=== PATIENT | female | born 1945 ===

== ENCOUNTER 2017-03-31 07:26 | Emergency (ER) | payer MEDICARE ==
[2017-03-31 07:31] VITALS: BMI 35.6
[2017-03-31 07:47] VITALS: RESP 18; O2SAT 98
[2017-03-31 09:05] LABS: BASO % 0.5 % (0.0-2.0); EOS # 0.1 K/uL (0.0-0.7); EOS % 1.2 % (0.0-4.0); HEMOGLOBIN 12.4 g/dL (12.0-16.0); LYMPH # 1.3 K/uL (1.0-4.3); MEAN CELL VOLUME 88.8 fl (81.0-99.0); MEAN CORPUSCULAR HEMOGLOBIN 29.5 pg (27.0-31.0); MEAN CORPUSCULAR HGB CONC 33.2 g/dL (33.0-37.0); MEAN PLATELET VOLUME 10.5 fl (7.2-11.7); MONO # 0.5 K/uL (0.0-0.8); MONO % 6.7 % (0.0-10.0); NEUT # 5.2 K/uL (1.8-7.0); NEUT % 73.6 % (50.0-75.0); NRBC % 0.1 % (0.0-0.0); RBC 4.2 Mil/uL (3.80-5.20); RED CELL DISTRIBUTION WIDTH 14.7 % (11.5-14.5)
--- NOTE | 2017-03-31 09:16 | ED PDOC ---
HPI: CCC, URI, Sore Throat Time Seen by Provider: 03/31/17 07:35 Chief Complaint (Nursing): ENT Problem Chief Complaint (Provider): ENT Problem History Per: Patient History/Exam Limitations: no limitations Onset/Duration Of Symptoms: Days (x 2 weeks) Current Symptoms Are (Timing): Still Present Additional Complaint(s): 71 y/o female with a past medical history of diabetes and asthma, who presents to the ED complaining of right-sided facial and throat pain, ongoing for 2 weeks. Denies recent dental work. Patient reports having strep throat infections in the past. PMD: Unknown Past Medical History Reviewed: Historical Data, Nursing Documentation, Vital Signs Vital Signs: Last Vital Signs Temp 98.7 F 03/31/17 12:52 Pulse 78 03/31/17 12:52 Resp 18 03/31/17 12:52 BP 128/78 03/31/17 12:52 Pulse Ox 98 03/31/17 12:52 - Medical History PMH: Asthma, Diabetes, HTN, Hyperlipidemia Denies: Hepatitis, HIV, Seizures, Sexually Transmitted Disease - Surgical History Surgical History: Appendectomy Other surgeries: Hysterectomy, L cataract surgery, breast reduction, thyroid surgery - Family History Family History: States: Unknown Family Hx - Social History Current smoker - smoking cessation education provided: No Alcohol: None Drugs: Denies - Immunization History Hx Tetanus Toxoid Vaccination: Yes Hx Influenza Vaccination: Yes Hx Pneumococcal Vaccination: Yes - Home Medications Home Medications: Ambulatory Orders Medication Instructions Recorded Lantus 30 units SC QN 10/29/15 Levothyroxine 75 mcg PO DAILY 10/29/15 Aspirin [Ecotrin] 81 mg PO DAILY 03/31/17 Atorvastatin Calcium 40 mg PO HS 03/31/17 Carvedilol [Coreg] 25 mg PO BID 03/31/17 Lisinopril/Hydrochlorothiazide 1 tab PO DAILY 03/31/17 [Lisinopril-Hctz 20-25 mg Tab] Pioglitazone [Actos] 30 mg PO DAILY 03/31/17 - Allergies Allergies/Adverse Reactions: Allergies Allergy/AdvReac Type Severity Reaction Status Date / Time No Known Allergies Allergy Verified 11/18/16 11:33 Review of Systems ROS Statement: Except As Marked, All Systems Reviewed And Found Negative ENT: Positive for: Throat Pain, Other (Right facial swelling) Cardiovascular: Negative for: Chest Pain Gastrointestinal: Negative for: Nausea, Vomiting, Abdominal Pain, Diarrhea Musculoskeletal: Positive for: Neck Pain Physical Exam - Reviewed Nursing Documentation Reviewed: Yes Vital Signs Reviewed: Yes - Physical Exam Appears: Positive for: Non-toxic, No Acute Distress, Uncomfortable Head Exam: Positive for: ATRAUMATIC, NORMAL INSPECTION, NORMOCEPHALIC Skin: Positive for: Normal Color, Warm, Dry Eye Exam: Positive for: EOMI, Normal appearance, PERRL ENT: Positive for: Pharyngeal Erythema. Negative for: Tonsillar Exudate Neck: Positive for: Normal, Painless ROM, Supple Cardiovascular/Chest: Positive for: Regular Rate, Rhythm. Negative for: Murmur Respiratory: Positive for: Normal Breath Sounds. Negative for: Accessory Muscle Use, Respiratory Distress Gastrointestinal/Abdominal: Positive for: Normal Exam, Soft. Negative for: Tenderness Back: Positive for: Normal Inspection. Negative for: Vertebral Tenderness Extremity: Positive for: Normal ROM. Negative for: Pedal Edema, Deformity Neurologic/Psych: Positive for: Alert, Oriented - Laboratory Results Result Diagrams: 03/31/17 08:56 03/31/17 08:56 - ECG O2 Sat by Pulse Oximetry: 98 (RA) Pulse Ox Interpretation: Normal Medical Decision Making Medical Decision Making: Time: 08:39 Initial Plan: neck pain, sore throat rule out infection/abscess --Labs --Acetaminophen 650 mg PO --Rapid strep test --Pending CT Neck Soft Tissue to rule out abscess Time: 12:00 CT Neck Soft Tissue: FINDINGS: NASOPHARYNX: Unremarkable. SUPRAHYOID NECK: Unremarkable oropharynx, oral cavity, parapharyngeal space and retropharyngeal space. INFRAHYOID NECK: Unremarkable larynx, hypopharynx, and supraglottic space. Vocal cords intact. MASS: None. GLANDS: Parotid and submandibular glands unremarkable. Normal size thyroid gland, without nodule. LYMPH NODES: Normal. No lymphadenopathy. CERVICAL SPINE: No fracture or focal lesion. VASCULAR STRUCTURES: Unremarkable. OTHER FINDINGS: No abscess or other suspicious fluid collection. IMPRESSION: Unremarkable contrast enhanced CT of the neck. Time: 12:20 --Patient aware of elevated blood sugar and reevaluated, states feels much better. sleeping comfortably in bed in NAD Clinical Impression: Facial pain Upon provider evaluation patient is medically stable, and requires no further treatment in the ED at this time. Patient will be discharged home. Counseling was provided and all questions were answered regarding diagnosis and need for follow up with PMD in 1-2 days. There is agreement to discharge plan. Return if symptoms persist or worsen. Scribe Attestation: Documented by Hazel Mathew, acting as a scribe for Chelsey Marti MD Provider Scribe Attestation: All medical record entries made by the Scribe were at my direction and personally dictated by me. I have reviewed the chart and agree that the record accurately reflects my personal performance of the history, physical exam, medical decision making, and the department course for this patient. I have also personally directed, reviewed, and agree with the discharge instructions and disposition. Disposition - Clinical Impression Clinical Impression: Facial pain - Patient ED Disposition Is Patient to be Admitted: No Doctor Will See Patient In The: Office Counseled Patient/Family Regarding: Studies Performed, Diagnosis, Need For Followup - Disposition Referrals: [facility] [Outside] [facility] [Outside] Disposition: Routine/Home Disposition Time: 10:00 Condition: IMPROVED Additional Instructions: follow up with your primary doctor in 1-2 days return to ED with any worsening or concerning symptoms. Instructions: Viral Syndrome (ED)
[2017-03-31 09:18] LABS: ALB/GLOB RATIO 1.2 (1.0-2.1); ALT/SGPT 33 U/L (9-52); AST/SGOT 21 U/L (14-36); BLOOD UREA NITROGEN 35 mg/dl (7-17); CALCIUM 9.5 mg/dL (8.4-10.2); GFR AFRICAN-AMERICAN > 60; GFR NON-AFRICAN AMERICAN > 60
[2017-03-31] MEDS ORDERED: Iohexol 300 100 ML IJ ONE (10:05)
[2017-03-31] MEDS ORDERED: Sodium Chloride 0.9% 50 ML IV ONE (10:06)
--- NOTE | 2017-03-31 12:02 | CT ---
PROCEDURE: CT NECK WITH CONTRAST HISTORY: neck pain COMPARISON: None TECHNIQUE: CT of the neck with intravenous contrast. Coronal and sagittal reformats generated. Intravenous contrast dose: Omnipaque Omnipaque 300-95 cc. Radiation dose: DLP 525 mGy-cm This CT exam was performed using one or more of the following dose reduction techniques: Automated exposure control, adjustment of the mA and/or kV according to patient size, and/or use of iterative reconstruction technique. FINDINGS: NASOPHARYNX: Unremarkable. SUPRAHYOID NECK: Unremarkable oropharynx, oral cavity, parapharyngeal space and retropharyngeal space. INFRAHYOID NECK: Unremarkable larynx, hypopharynx, and supraglottic space. Vocal cords intact. MASS: None. GLANDS: Parotid and submandibular glands unremarkable. Normal size thyroid gland, without nodule. LYMPH NODES: Normal. No lymphadenopathy. CERVICAL SPINE: No fracture or focal lesion. VASCULAR STRUCTURES: Unremarkable. OTHER FINDINGS: No abscess or other suspicious fluid collection. IMPRESSION: Unremarkable contrast enhanced CT of the neck.
[2017-03-31 12:54] VITALS: BP 128/78; PULSE 78; TEMP 98.7
== END 2017-03-31 13:32 | disposition home or self-care (01) ==
LOC: H.ER 07:26
DX: M54.2 Cervicalgia (principal); J02.9 Acute pharyngitis, unspecified; R51 Headache; E11.65 Type 2 diabetes mellitus with hyperglycemia; E78.5 Hyperlipidemia, unspecified; I10 Essential (primary) hypertension; J45.909 Unspecified asthma, uncomplicated
CPT/HCPCS: 70491; 80053; 85025; 87070; 87430; 96374; 99282; J2270; Q9967

== ENCOUNTER 2018-09-14 02:23 | Emergency (ER) | payer MEDICARE ==
[2018-09-14 02:23] VITALS: BMI 35.6
[2018-09-14] MEDS ORDERED: Albuterol-Ipratrop 3 mg / 0.5 (3 ml) UD INH STA ×2 (03:13→03:20)
[2018-09-14] MEDS ORDERED: Albuterol-Ipratrop 3 mg / 0.5 (3 ml) UD ONE (03:34)
[2018-09-14 03:56] LABS: BASO # 0.1 K/uL (0.0-0.2); EOS # 0.2 K/uL (0.0-0.7); EOS % 3.5 % (0.0-4.0); HEMOGLOBIN 11.9 g/dL (12.0-16.0); LYMPH # 0.8 K/uL (1.0-4.3); LYMPH % 15.1 % (20.0-40.0); MEAN CELL VOLUME 90.4 fl (81.0-99.0); MEAN CORPUSCULAR HEMOGLOBIN 29.2 pg (27.0-31.0); MEAN CORPUSCULAR HGB CONC 32.3 g/dL (33.0-37.0); MEAN PLATELET VOLUME 10.1 fl (7.2-11.7); MONO # 0.4 K/uL (0.0-0.8); MONO % 7.8 % (0.0-10.0); NEUT # 3.8 K/uL (1.8-7.0); NEUT % 72.6 % (50.0-75.0); NRBC % 0.1 % (0.0-0.0); RBC 4.06 Mil/uL (3.80-5.20); RED CELL DISTRIBUTION WIDTH 15.8 % (11.5-14.5); WHITE BLOOD COUNT 5.2 K/uL (4.8-10.8)
[2018-09-14 04:08] LABS: BLOOD UREA NITROGEN 20 mg/dl (7-17); CALCIUM 9.8 mg/dL (8.4-10.2); GFR NON-AFRICAN AMERICAN > 60
[2018-09-14 04:45] VITALS: BP 154/86; PULSE 70; RESP 18; TEMP 98.6; O2SAT 97
--- NOTE | 2018-09-14 06:23 | ED PDOC ---
HPI: Hypertension/Hypotension Time Seen by Provider: 09/14/18 02:56 Chief Complaint (Nursing): High Blood Pressure Chief Complaint (Provider): High Blood Pressure History Per: Patient History/Exam Limitations: no limitations Onset/Duration Of Symptoms: Days (x 1 week) Current Symptoms Are (Timing): Still Present Quality Of Symptoms: Asymptomatic Exacerbating Factor(s): Pos: None Additional Complaint(s): 73 year old female with a history of COPD and asthma presents to the ED with HTN and shortness of breath. Patient receive the flu shot one week ago and since then has had a productive cough. She was taking OTC medications that she attributes to the rise in her blood pressure. Patient is compliant with her medications and regularly follows up with her PMD. Denies chest pain and other symptoms. PMD: [employer] Past Medical History Reviewed: Historical Data, Nursing Documentation, Vital Signs Vital Signs: Last Vital Signs Temp 98.6 F 09/14/18 04:30 Pulse 70 09/14/18 04:30 Resp 18 09/14/18 04:30 BP 154/86 H 09/14/18 04:30 Pulse Ox 97 09/14/18 04:30 - Medical History PMH: Asthma, Diabetes, HTN, Hyperlipidemia Denies: Hepatitis, HIV, Seizures, Sexually Transmitted Disease - Surgical History Surgical History: Appendectomy - Family History Family History: States: Unknown Family Hx - Immunization History Hx Tetanus Toxoid Vaccination: Yes Hx Influenza Vaccination: Yes Hx Pneumococcal Vaccination: Yes - Home Medications Home Medications: Ambulatory Orders Medication Instructions Recorded Lantus 30 units SC QN 10/29/15 Levothyroxine 75 mcg PO DAILY 10/29/15 Aspirin [Ecotrin] 81 mg PO DAILY 03/31/17 Atorvastatin Calcium 40 mg PO HS 03/31/17 Carvedilol [Coreg] 25 mg PO BID 03/31/17 Lisinopril/Hydrochlorothiazide 1 tab PO DAILY 03/31/17 [Lisinopril-Hctz 20-25 mg Tab] Pioglitazone [Actos] 30 mg PO DAILY 03/31/17 Albuterol HFA [Ventolin HFA 90 2 puff IH [id number] #1 pump 09/14/18 mcg/actuation (8 g)] - Allergies Allergies/Adverse Reactions: Allergies Allergy/AdvReac Type Severity Reaction Status Date / Time No Known Allergies Allergy Verified 11/18/16 11:33 Review of Systems ROS Statement: Except As Marked, All Systems Reviewed And Found Negative Cardiovascular: Negative for: Chest Pain Respiratory: Positive for: Shortness of Breath Physical Exam - Reviewed Nursing Documentation Reviewed: Yes Vital Signs Reviewed: Yes - Physical Exam Appears: Positive for: Non-toxic, No Acute Distress Head Exam: Positive for: ATRAUMATIC, NORMAL INSPECTION, NORMOCEPHALIC Skin: Positive for: Normal Color, Warm, Dry Eye Exam: Positive for: EOMI, Normal appearance, PERRL Neck: Positive for: Normal, Painless ROM, Supple Cardiovascular/Chest: Positive for: Regular Rate, Rhythm. Negative for: Murmur Respiratory: Positive for: Wheezing (bilateral ). Negative for: Respiratory Distress Gastrointestinal/Abdominal: Positive for: Normal Exam, Soft. Negative for: Tenderness Extremity: Positive for: Normal ROM. Negative for: Deformity Neurologic/Psych: Positive for: Alert, Oriented. Negative for: Motor/Sensory Deficits - Laboratory Results Result Diagrams: 09/14/18 03:54 09/14/18 03:54 - ECG O2 Sat by Pulse Oximetry: 97 (RA) Pulse Ox Interpretation: Normal Medical Decision Making Medical Decision Makin:08 MDM: Initially workup for asthma exacerbation. Given duonebs, Tylenol and home medications. 04:28 Will be discharged home and to follow up with PMD in 1-2 days. Scribe Attestation: Documented by Carolyne Moralez acting as a scribe for Sun Leon MD Provider Scribe Attestation: All medical record entries made by the Scribe were at my direction and personally dictated by me. I have reviewed the chart and agree that the record accurately reflects my personal performance of the history, physical exam, medical decision making, and the department course for this patient. I have also personally directed, reviewed, and agree with the discharge instructions and disposition. Disposition - Clinical Impression Clinical Impression: Hypertension, Asthma - Patient ED Disposition Is Patient to be Admitted: No - Disposition Disposition: Routine/Home Disposition Time: 04:28 Condition: IMPROVED Prescriptions: Albuterol HFA [Ventolin HFA 90 mcg/actuation (8 g)] 2 puff IH [id number] #1 pump Instructions: High Blood Pressure in Adults, Asthma, Adult (DC), High Blood Pressure (DC) Forms: [employer] (Cameroonian) Print Language: SPANISH
--- NOTE | 2018-09-14 11:29 | RAD ---
Date of service: 09/14/2018 HISTORY: possible admission COMPARISON: 06/17/2016 FINDINGS: LUNGS: No active pulmonary disease. PLEURA: No significant pleural effusion identified, no pneumothorax apparent. CARDIOVASCULAR: No atherosclerotic calcification present No radiographic findings to suggest acute or significant cardiovascular disease. OSSEOUS STRUCTURES: No significant abnormalities. VISUALIZED UPPER ABDOMEN: Normal. OTHER FINDINGS: None. IMPRESSION: No active disease. No significant interval change compared to the prior examination(s).
== END 2018-09-14 04:47 | disposition home or self-care (01) ==
LOC: H.ER 02:23
DX: I10 Essential (primary) hypertension (principal); J44.9 Chronic obstructive pulmonary disease, unspecified; E11.9 Type 2 diabetes mellitus without complications; E78.5 Hyperlipidemia, unspecified; Z79.4 Long term (current) use of insulin; Z79.82 Long term (current) use of aspirin; Z79.899 Other long term (current) drug therapy

== ENCOUNTER 2018-09-24 09:18 | Inpatient (IN) | payer MEDICARE ==
[2018-09-24 09:18] VITALS: BMI 35.6
--- NOTE | 2018-09-24 10:25 | ED PDOC ---
History of Present Illness History of Present Illness: 73yo female presents c/o SOB, fatigue/weakness with exercise intolerance and edema to b/l legs and face onset about 2 weeks ago and worsening. She believes symptoms started after a flu like illness for which Dr Adame gave her an unknown injection. Denies known history of heart failure. She does not chest tightness and cough, headache and several episodes vomiting over last week. HPI: Influenza Time Seen by Provider: 09/24/18 10:06 Chief Complaint: Cough, Cold, Congestion Chief Complaint (Provider): SOB, weakness History Per: Patient Exam Limitations: no limitations Have you had recent travel within the past 21 days to any of: No Onset/Duration Of Symptoms: Days (14+), Gradual Symptoms include: headache, bodyaches, cough, vomiting Risk factors for flu complications: Yes: adult > 65 years Past Medical History Reviewed: Historical Data, Nursing Documentation, Vital Signs - Medical History PMH: Anxiety, Asthma, Diabetes, HTN, Hyperlipidemia Denies: CHF, Hepatitis, HIV, Seizures, Sexually Transmitted Disease - Surgical History Surgical History: Appendectomy - Family History Family History: States: Unknown Family Hx - Immunization History Hx Tetanus Toxoid Vaccination: Yes Hx Influenza Vaccination: Yes Hx Pneumococcal Vaccination: Yes - Home Medications Home Medications: Ambulatory Orders Medication Instructions Recorded Lantus 30 units SC QN 10/29/15 Levothyroxine 75 mcg PO DAILY 10/29/15 Aspirin [Ecotrin] 81 mg PO DAILY 03/31/17 Atorvastatin Calcium 40 mg PO HS 03/31/17 Carvedilol [Coreg] 25 mg PO BID 03/31/17 Lisinopril/Hydrochlorothiazide 1 tab PO DAILY 03/31/17 [Lisinopril-Hctz 20-25 mg Tab] Pioglitazone [Actos] 30 mg PO DAILY 03/31/17 Albuterol HFA [Ventolin HFA 90 2 puff IH [id number] #1 pump 09/14/18 mcg/actuation (8 g)] - Allergies Allergies/Adverse Reactions: Allergies Allergy/AdvReac Type Severity Reaction Status Date / Time No Known Allergies Allergy Verified 11/18/16 11:33 Review of Systems ROS Statement: Except As Marked, All Systems Reviewed And Found Negative Constitutional: Positive for: Chills, Weakness, Malaise ENT: Negative for: Ear Pain Cardiovascular: Positive for: Palpitations, Orthopnea, Edema, Light Headedness Respiratory: Positive for: Cough, Shortness of Breath. Negative for: Hemoptysis Gastrointestinal: Positive for: Nausea, Vomiting. Negative for: Abdominal Pain Genitourinary Female: Negative for: Dysuria Musculoskeletal: Positive for: Back Pain. Negative for: Neck Pain Skin: Negative for: Rash, Lesions Neurological: Positive for: Headache, Dizziness. Negative for: Weakness, Numbness Physical Exam - Reviewed Nursing Documentation Reviewed: Yes Vital Signs Reviewed: Yes - Physical Exam Appears: Positive for: Well, Non-toxic, No Acute Distress Head Exam: Positive for: ATRAUMATIC, NORMAL INSPECTION, NORMOCEPHALIC Skin: Positive for: Normal Color, Warm Eye Exam: Positive for: Normal appearance, EOMI, PERRL, Other (mild facial edema) ENT: Negative for: Tonsillar Exudate Neck: Positive for: Normal, Painless ROM Cardiovascular/Chest: Positive for: Regular Rate, Rhythm. Negative for: Tachycardia Respiratory: Positive for: Decreased Breath Sounds Pulses-Radial (L): 2+ Pulses-Radial (R): 2+ Gastrointestinal/Abdominal: Positive for: Soft. Negative for: Tenderness Back: Positive for: Normal Inspection Extremity: Positive for: Pedal Edema, Swelling Neurologic/Psych: Positive for: Alert, Oriented. Negative for: Motor/Sensory Deficits Medical Decision Making Medical Decision Making: labs reviewed reveal elev BNP, new trop neg renal function clinically unremarkable EKG no change from 09/14/18 CXR reveals borderline CM lasix initiated Admit Dr Kelly covering Dr Green - Laboratory Results Result Diagrams: 09/24/18 10:10 09/24/18 10:10 - ECG ECG: Positive for: Interpreted By Me ECG Rhythm: Positive for: Sinus Rhythm, ST/T Changes, Nonspecific Changes Rate: 83 O2 Sat by Pulse Oximetry: 92 Pulse Ox Interpretation: Abnormal Disposition - Clinical Impression Clinical Impression: New onset of congestive heart failure - Patient ED Disposition Is Patient to be Admitted: Yes - Disposition Disposition Time: 12:05 Condition: FAIR Forms: [employer] (Latvian)
[2018-09-24 10:26] LABS: BASO % 0.6 % (0.0-2.0); EOS # 0.1 K/uL (0.0-0.7); EOS % 2.6 % (0.0-4.0); HEMOGLOBIN 12.6 g/dL (12.0-16.0); LYMPH # 0.8 K/uL (1.0-4.3); LYMPH % 14.3 % (20.0-40.0); MEAN CELL VOLUME 89.6 fl (81.0-99.0); MEAN CORPUSCULAR HEMOGLOBIN 29.3 pg (27.0-31.0); MEAN CORPUSCULAR HGB CONC 32.7 g/dL (33.0-37.0); MEAN PLATELET VOLUME 10.3 fl (7.2-11.7); MONO # 0.5 K/uL (0.0-0.8); MONO % 9.5 % (0.0-10.0); NEUT # 4.2 K/uL (1.8-7.0); RBC 4.29 Mil/uL (3.80-5.20); RED CELL DISTRIBUTION WIDTH 16.2 % (11.5-14.5); WHITE BLOOD COUNT 5.7 K/uL (4.8-10.8)
[2018-09-24 11:12] LABS: B-TYPE NATRIURETIC PEPTIDE 2100 pg/ml (0-900)
[2018-09-24 11:14] LABS: ALB/GLOB RATIO 1.3 (1.0-2.1); ALBUMIN 4.2 g/dL (3.5-5.0); ALT/SGPT 50 U/L (9-52); AST/SGOT 27 U/L (14-36); BLOOD UREA NITROGEN 18 mg/dl (7-17); CALCIUM 9.6 mg/dL (8.4-10.2); GFR NON-AFRICAN AMERICAN > 60
--- NOTE | 2018-09-24 12:03 | CT ---
Date of service: 09/24/2018 PROCEDURE: CT HEAD WITHOUT CONTRAST. HISTORY: headache, weakness COMPARISON: 11/18/2016 TECHNIQUE: Axial computed tomography images were obtained through the head/brain without intravenous contrast. Radiation dose: Total exam DLP = 799.39 mGy-cm. This CT exam was performed using one or more of the following dose reduction techniques: Automated exposure control, adjustment of the mA and/or kV according to patient size, and/or use of iterative reconstruction technique. FINDINGS: HEMORRHAGE: No intracranial hemorrhage. BRAIN: No mass effect or edema. No atrophy or chronic microvascular ischemic changes. VENTRICLES: Unremarkable. No hydrocephalus. CALVARIUM: Unremarkable. PARANASAL SINUSES: Maxillary mucosal thickening present-prior images do not visually included this section of the maxillary sinus to assess for chronicity. MASTOID AIR CELLS: Unremarkable as visualized. No inflammatory changes. OTHER FINDINGS: None. IMPRESSION: No intracranial hemorrhage or mass effect. Left maxillary sinus chronic appearing inflammatory changes.
--- NOTE | 2018-09-24 12:45 | RAD ---
Date of service: 09/24/2018 HISTORY: cough COMPARISON: 09/14/2018 TECHNIQUE: Chest PA and lateral FINDINGS: LUNGS: Interval increased perihilar bronchovascular markings with bilateral perihilar and infrahilar peribronchial thickening No consolidation appreciated. PLEURA: No significant pleural effusion identified. Trace fluid and/or thickening in the lateral right minor fissure. No pneumothorax apparent. CARDIOVASCULAR: No aortic atherosclerotic calcification present. Mild cardiomegaly mild pulmonary venous congestion in addition to peribronchial thickening suspect. OSSEOUS STRUCTURES: Thoracic spondylosis. Bilateral shoulder arthrosis. VISUALIZED UPPER ABDOMEN: Normal. OTHER FINDINGS: None. IMPRESSION: No consolidation seen. Peribronchial thickening-a nonspecific bronchitis peribronchial inflammatory process compatible with this. Viral pneumonitis not excluded. Concomitant mild pulmonary venous congestion suspect. Mild cardiomegaly. Trace fluid and/or thickening in the lateral right minor fissure noted. Clinical correlation and follow-up recommended. Other findings as above.
[2018-09-24] MEDS ORDERED: Albuterol-Ipratrop 3 mg / 0.5 (3 ml) UD INH STA ×2 (13:22→15:20)
[2018-09-24] MEDS ORDERED: Albuterol HFA 90 mcg/actuation (8 g) IH PRN (13:38)
[2018-09-24] MEDS ORDERED: Glucagon Recombinant 1 mg Inj IM PRN (13:41)
[2018-09-24] MEDS ORDERED: Dextrose 50% SYRINGE Inj (50 ml) IV PRN (13:41)
--- NOTE | 2018-09-24 13:43 | CP.PCM.HP ---
<Sultan Patricia - Last Filed: 09/24/18 15:24> History of Present Illness - History of Present Illness History of Present Illness: 73 year old female with PMHx asthma, DMII, HTN, Hypothyroism presents to [facility] ER with complaints of chest pressure, chest tightness and shortness of breath x 2 weeks associated B/L lower leg edema x 1 week and facial swelling since this morning. Reports intermittent fever (100.3 F this morning) for 2 weeks. Patient reports she had flu like illness including cough, fever and bodyaches x 2 weeks. Reports feeling progressively fatigue and tired. Denies any headache, chest pain, nausea, vomiting, abdominal pain or dysuria. Denies any hx CHF. Denies any recent long distance or any hx VTE. In ED, patients proBNP is elevated and CXR shows mild cardiomegaly. Patient is admitted for evaluation of dyspnea and new onset CHF. ROS: All 12 systems reviewed and negative except as mentioned above. PMD: Dr. Redmond PMHx: Asthma, HTN, DMII, Hypothyroidsm Psurghx: fibroid removal, cataract, appendectomy and B/L breast reduction Social hx: Denies ever smoking cigarettes. Denies EtOH or drugs uses Family hx: noncontributory Allergies: NKDA Medications: reviewed Present on Admission - Present on Admission Any Indicators Present on Admission: No Review of Systems - Review of Systems All systems: reviewed and no additional remarkable complaints except Past Patient History - Infectious Disease Hx of Infectious Diseases: None - Past Social History Smoking Status: Never Smoked - CARDIAC Hx Congestive Heart Failure: No Hx Hypertension: Yes - PULMONARY Hx Asthma: Yes - NEUROLOGICAL Hx Seizures: No - HEENT Other/Comment: L cataract surgery years ago - ENDOCRINE/METABOLIC Hx Diabetes Insipidus: Yes - HEMATOLOGICAL/ONCOLOGICAL Hx Human Immunodeficiency Virus (HIV): No - GENITOURINARY/GYNECOLOGICAL Hx Sexually Transmitted Disorders: No - PSYCHIATRIC Hx Anxiety: Yes - SURGICAL HISTORY Hx Appendectomy: Yes - ANESTHESIA Hx Anesthesia: Yes Hx Anesthesia Reactions: No Meds Allergies/Adverse Reactions: Allergies Allergy/AdvReac Type Severity Reaction Status Date / Time No Known Allergies Allergy Verified 11/18/16 11:33 Physical Exam - Constitutional Appears: Non-toxic, No Acute Distress - Head Exam Head Exam: NORMAL INSPECTION - Eye Exam Eye Exam: EOMI, Normal appearance, PERRL - ENT Exam ENT Exam: Mucous Membranes Moist, Normal Exam - Neck Exam Neck exam: Positive for: Normal Inspection. Negative for: Meningismus - Respiratory Exam Respiratory Exam: Decreased Breath Sounds, Wheezes (expiratory wheezing on right lung base with prolong expiratory phase). absent: Rales, Rhonchi Additional comments: Mild tachypnenic, saturating 100% on 3L NC oxygen. Speaking in complete sentences - Cardiovascular Exam Cardiovascular Exam: REGULAR RHYTHM, +S1, +S2. absent: JVD - GI/Abdominal Exam GI & Abdominal Exam: Normal Bowel Sounds, Soft. absent: Tenderness - Extremities Exam Extremities exam: Positive for: pedal edema (2+). Negative for: calf tenderness - Neurological Exam Neurological exam: Alert, Oriented x3 - Psychiatric Exam Psychiatric exam: Normal Affect, Normal Mood - Skin Skin Exam: Normal Color, Warm Results - Vital Signs Recent Vital Signs: Last Vital Signs Temp Pulse 83 09/24/18 12:32 Resp BP 148/56 L 09/24/18 13:39 Pulse Ox 92 L 09/24/18 12:32 - Labs Result Diagrams: 09/24/18 10:10 09/24/18 10:10 Labs: Laboratory Results - last 24 hr 09/24/18 09/24/18 10:10 10:10 WBC 5.7 RBC 4.29 Hgb 12.6 Hct 38.4 MCV 89.6 MCH 29.3 MCHC 32.7 L RDW 16.2 H Plt Count 156 MPV 10.3 Neut % (Auto) 73.0 Lymph % (Auto) 14.[address] % (Auto) 9.5 Eos % (Auto) 2.6 Baso % (Auto) 0.6 Neut # (Auto) 4.2 Lymph # (Auto) 0.[address] [place] # (Auto) 0.5 Eos # (Auto) 0.1 Baso # (Auto) 0.0 Sodium 136 Potassium 3.7 Chloride 103 Carbon Dioxide 26 Anion Gap 11 BUN 18 H Creatinine 0.7 Est GFR ( Amer) > 60 Est GFR (Non-Af Amer) > 60 Random Glucose 200 H Calcium 9.6 Total Bilirubin 0.8 AST 27 ALT 50 Alkaline Phosphatase 71 Troponin I < 0.0120 NT-Pro-B Natriuret Pep 2100 H Total Protein 7.4 Albumin 4.2 Globulin 3.2 Albumin/Globulin Ratio 1.3 Assessment & Plan (1) Shortness of breath Status: Acute (2) New onset of congestive heart failure Status: Acute (3) Type 2 diabetes mellitus Status: Chronic (4) Hypothyroid Status: Chronic (5) Hypertension Status: Chronic - Assessment and Plan (Free Text) Assessment: 73 year old female with PMHx asthma, DMII, HTN, Hypothyroism presents to [facility] ER with complaints of chest pressure, chest tightness and shortness of breath x 2 weeks associated B/L lower leg edema x 1 weeks and facial swelling since this morning. In ED, patients proBNP is elevated and CXR shows mild cardiomegaly. Patient is admitted for evaluation of dyspnea and new onset CHF. Plan: Shortness of breath likely 2/2 new onset CHF and/or asthma exacerbation -CBC and CMP unremarkable -CXR: IMPRESSION: No consolidation seen. Peribronchial thickening-a nonspecific bronchitis peribronchial inflammatory process compatible with this. Viral pneumonitis not excluded. Concomitant mild pulmonary venous congestion suspect. Mild cardiomegaly. Trace fluid and/or thickening in the lateral right minor fissure noted. -EKG: sinus rhythm with PVC, no ST/T changes -Trop x 1 neg -ProBNP 1200 -s/p Lasix 40 mg IVP -s/p duoneb x1 and solumedrol 40 mg IVP -c/w duoneb q4 hr -Cardiology consult, Dr. Castillo, f/u recommendation -f/u chest CT and echo -f/u AM labs DMII -Resume home medications -SSI -hypoglycemia protocol HTN -resume home medication Hypothyroidism -c/w levothyroxine -f/u TSH DVT and PUD prophylaxis -Lovenox 40 mg sc -Pantoprazole 40 mg po daily Code status -full code Plan discussed with Dr. Cordero <Heri Cordero - Last Filed: 09/27/18 21:02> Results - Vital Signs Recent Vital Signs: Last Vital Signs Temp 98.0 F 09/27/18 20:34 Pulse 69 09/27/18 20:34 Resp 20 09/27/18 20:34 BP 135/83 09/27/18 20:34 Pulse Ox 100 09/27/18 20:34 - Labs Result Diagrams: 09/26/18 04:00 09/26/18 06:45 Labs: Laboratory Results - last 24 hr 09/26/18 09/26/18 09/27/18 21:30 23:57 04:44 POC Glucose (mg/dL) 254 H 219 H 179 H 09/27/18 10:53 POC Glucose (mg/dL) 172 H Assessment & Plan - Assessment and Plan (Free Text) Plan: I was present during evaluation and discussed with Dr Patricia handy plans of care and mgt.. Will follow up labs, heri Cordero
[2018-09-24] MEDS ORDERED: Iodixanol 320 MG/ML 100 ML BOTTLE IV ONE (15:17)
[2018-09-24] MEDS ORDERED: Sodium Chloride 0.9% 50 ML IV ONE (15:17)
[2018-09-24 16:55] LABS: TROPONIN I 0.023 ng/mL (0.00-0.120)
[2018-09-24] MEDS: Cholecalciferol 1,000 INTLU TAB PO SCH (17:03)
[2018-09-24] MEDS: Insulin Regular 100 units/ml SC SCH ×2 (17:07→22:38)
[2018-09-24] MEDS: Albuterol-Ipratrop 3 mg / 0.5 (3 ml) UD INH SCH ×3 (17:10→23:57)
[2018-09-24 17:36] LABS: VENOUS BLOOD GAS PCO2 82 mmHg (40-60); VENOUS BLOOD GAS PO2 61 mm/Hg (30-55); VENOUS BLOOD PH 7.04 (7.32-7.43)
--- NOTE | 2018-09-24 17:36 | CT ---
Date of service: 09/24/2018 PROCEDURE: CT Chest with contrast (Pulmonary Angiogram) HISTORY: worsening dyspnea COMPARISON: 12/13/2007 CT thorax TECHNIQUE: Axial computed tomography images were obtained of the chest in the pulmonary arterial phase of enhancement. Coronal and sagittal reformatted images were created and reviewed. Intravenous contrast dose: 80 cc Visipaque 320 Mean Hounsfield value in the main pulmonary artery: 312.57 Radiation dose: Total exam DLP = 355.03 mGy-cm. This CT exam was performed using one or more of the following dose reduction techniques: Automated exposure control, adjustment of the mA and/or kV according to patient size, and/or use of iterative reconstruction technique. FINDINGS: PULMONARY ARTERIES: Unremarkable. No pulmonary embolism. AORTA: No acute findings. No thoracic aortic aneurysm. No atherosclerotic calcification or mural plaque present. LUNGS: Unremarkable. No nodule, mass or pulmonary consolidation. PLEURAL SPACES: Small bilateral pleural effusions right larger than left. Associated compressive atelectasis. HEART: Unremarkable. No cardiomegaly. No significant pericardial effusion. LYMPH NODES: Prominent lymphoid tissue hilum and mediastinum. Similar findings identified on a remote CT of the thorax 12/13/2007. BONES, CHEST WALL: Unremarkable. No fracture or destructive lesion OTHER FINDINGS: Unremarkable. IMPRESSION: Unremarkable CT pulmonary angiogram. No pulmonary embolus. Small bilateral pleural effusions, associated compressive atelectasis.
[2018-09-24] MEDS: Potassium Chloride 20 mEq ER Tab PO SCH (17:58)
[2018-09-24 18:26] LABS: ABG ALLEN TEST YES; ARTERIAL BLOOD GAS HCO3 28.3 mmol/L (21-28); ARTERIAL BLOOD GAS O2 SAT 98.8 % (95-98); ARTERIAL BLOOD GAS PCO2 34 mm/Hg (35-45); ARTERIAL BLOOD GAS PH 7.51 (7.35-7.45); ARTERIAL BLOOD GAS PO2 99 mm/Hg (80-100); ARTERIAL BLOOD GAS TCO2 28.1 mmol/L (22-28)
--- NOTE | 2018-09-24 18:40 | PCM.RRT ---
[employer] Nurse Assessment - Situation [employer] Responder Arrival Time: 18:12 Location: N [facility] Called By: RN - IV IV Inserted during [employer]ADER?: No - Respiratory Oxygen Delivery Method: Nasal Cannula Received Nebulizer Treatments: No Was the Patient Ventilated with Bag/Mask 100% O2?: No Secretions Suctioned?: No Was the Patient Intubated?: No Was the Patient Placed on a Ventilator?: No - Medication Medications Administered During [employer]ER: Hydralazine 10 mg IV. Lasix 40 mg IV - Diagnostic Test Ordered EKG: No Chest X-Ray: No CT Scan: No CPR started during [employer]AM GRADER?: No - Vital Signs Vital Signs: 178/89 HR 85 O2 Sat 100% on 3 L O2 via NC - Time [employer]ER Ended Time [employer] Ended: 18:30 - Vital Signs at end of [employer]ER Vital Signs at end of [employer]ER: BP 168/84 HR 85 O2Sat 100 % on NRM - Recommendations [employer]ER Level of Care Recommendations: Remain in current setting I.Reason for [employer]ADER - A) Acute Change in Patient: (Select all that apply): Staff member or family is worried about patient - Neurological Status (Select all that apply): Alert, Responsive, Oriented, Verbal, Follows Commands - Respiratory Oxygen Delivery Method: Nasal Cannula @L/min - Constitutional Appears: In Acute Distress Additional Comments: anxious , tachypneic - Head Head Exam: ATRAUMATIC, NORMAL INSPECTION, NORMOCEPHALIC - Eyes Eye Exam: EOMI, Normal appearance, PERRL - Respiratory Exam Respiratory Exam: Decreased Breath Sounds (bibasil;ar ), Rales, Respiratory Distress. absent: Rhonchi, Wheezes Additional comments: tachypneic - Cardiovascular Exam Cardiovascular Exam: REGULAR RHYTHM, +S1, +S2. absent: JVD - GI/Abdominal Exam GI & Abdominal Exam: Soft, Normal Bowel Sounds. absent: Distended, Guarding, Tenderness, Rebound - Neurological Exam Neurological Exam: Alert, Awake, Oriented x3 - Extremities Exam Extremities Exam: Pedal Edema (2 +) Plan - Assessment of Findings&Treatment Plan [employer] called by staff for 73 y/o female patient with PMH HTN, DM type II, Dyslipidemia , Asthma and hypothyroidism because patient was not feeling well,feeling tired , weak and tachypneic .Patient denies any chest pain or tightness BP found to be elevated 178/89 HR 84 saturating 100 % on 3 L O2 via NC Accu 264 Physical exam significant fort an overweight female , appearing anxious, tachypneic with bibasilar rales on exam and 2 +bilateral LE edema All chart and clinical data reviewed Patient was evaluated today for progressive SOB , chest tightness and LE edema for 1 week in ER and admitted for New onset CHF exacerbation . Patient was afebrile with WBC 5.5 hgb 12.6 Normal renal and Liver fxn BNP 2100, Trop negative CTA chest showed no PE , small bilateral pleural effusion VBG in ER had shown ph 7.04 PCO2 82 PO2 61 lactate 5.4 She was treated with IV lasix placed on O2 via NC and admitted to telemetry for close monitoring At presenty patienty with no hest pain , just feeling weak,. tired and appears anxious ABG on 3 L O2 via NC reported as ph 7.5 PO2 99 PCO2 34 lactate 1.6 Lasix 40 mg IV and Hydralazine 1`0 mg IV given Will keep patient in telemetry setting for monitoring Place patient on Venti mask FIO2 35 % Will order Trop , BMP , Mg Assessment Acute CHF exacerbation Pleural effusion Anxiety
[2018-09-24 18:44] LABS: URINE BILIRUBIN NEGATIVE (NEGATIVE); URINE BLOOD NEGATIVE (NEGATIVE); URINE CLARITY CLEAR (Clear); URINE COLOR COLORLESS (YELLOW); URINE GLUCOSE (UA) NEG (NEGATIVE); URINE LEUKOCYTE ESTERASE NEG Leu/uL (Negative); URINE PROTEIN NEGATIVE (NEGATIVE); URINE UROBILINOGEN 0.2-1.0 mg/dL (0.2-1.0)
[2018-09-24 18:56] LABS: SQUAMOUS EPITHIAL < 1 /hpf (0-5)
--- NOTE | 2018-09-24 20:06 | CP.PCM.CON ---
History of Present Illness - History of Present Illness History of Present Illness: patient seen/examined full consult to follow. echocardiogram Normal LV function by echocardiogram Moderate tricuspid regurgitation with moderate pulmonary hypertension. will continue medical therapy Past Patient History - Infectious Disease Hx of Infectious Diseases: None - Past Social History Smoking Status: Never Smoked - CARDIAC Hx Cardiac Disorders: No - PULMONARY Hx Asthma: Yes - NEUROLOGICAL Hx Seizures: No - HEENT Other/Comment: L cataract surgery years ago - ENDOCRINE/METABOLIC Hx Diabetes Insipidus: Yes - HEMATOLOGICAL/ONCOLOGICAL Hx Human Immunodeficiency Virus (HIV): No - GENITOURINARY/GYNECOLOGICAL Hx Sexually Transmitted Disorders: No - PSYCHIATRIC Hx Anxiety: Yes - SURGICAL HISTORY Hx Appendectomy: Yes - ANESTHESIA Hx Anesthesia: Yes Hx Anesthesia Reactions: No Meds Allergies/Adverse Reactions: Allergies Allergy/AdvReac Type Severity Reaction Status Date / Time No Known Allergies Allergy Verified 11/18/16 11:33 - Medications Medications: Current Medications Albuterol (Ventolin Hfa 90 Mcg/Actuation (8 G)) 2 puff IH RQ6 PRN PRN Reason: Shortness of Breath Albuterol/Ipratropium (Duoneb 3 Mg/0.5 Mg (3 Ml) Ud) 3 ml INH RQ4 [facility] Last Admin: 09/24/18 19:50 Dose: 3 ml Aspirin (Ecotrin) 81 mg PO DAILY [facility] Last Admin: 09/24/18 13:46 Dose: 81 mg Atorvastatin Calcium (Lipitor) 40 mg PO HS [facility] Carvedilol (Coreg) 25 mg PO Q12 [facility] Cholecalciferol (Vitamin D) 1,000 intlu PO Q48H [facility] Last Admin: 09/24/18 17:03 Dose: 1,000 intlu Dextrose (Dextrose 50% Inj) 0 ml IV STAT PRN; Protocol PRN Reason: Hypoglycemia Protocol Dextrose (Glutose 15) 0 gm PO ONCE PRN; Protocol PRN Reason: Hypoglycemia Protocol Enoxaparin Sodium (Lovenox) 40 mg SC DAILY [facility]; Protocol Furosemide (Lasix) 40 mg IVP BID [facility] Last Admin: 09/24/18 17:59 Dose: 40 mg Glucagon (Glucagen Diagnostic Kit) 0 mg IM STAT PRN; Protocol PRN Reason: Hypoglycemia Protocol Hydrochlorothiazide (Hydrodiuril) 25 mg PO DAILY [facility] Insulin Detemir (Levemir) 30 units SC HS [facility] Insulin Human Regular (Humulin R) 0 units SC ACHS [facility]; Protocol Last Admin: 09/24/18 17:07 Dose: 3 unit Levothyroxine Sodium (Synthroid) 75 mcg PO DAILY@0630 [facility] Lisinopril (Zestril) 20 mg PO DAILY [facility] Pantoprazole Sodium (Protonix Ec Tab) 40 mg PO DAILY [facility] Potassium Chloride (K-Dur 20 Meq Er Tab) 20 meq PO BID [facility] Last Admin: 09/24/18 17:58 Dose: 20 meq Results - Vital Signs Recent Vital Signs: Last Vital Signs Temp 97.9 F 09/24/18 20:01 Pulse 95 H 09/24/18 20:01 Resp 20 09/24/18 20:01 BP 149/83 09/24/18 20:01 Pulse Ox 99 09/24/18 20:01 - Labs Result Diagrams: 09/24/18 10:10 09/24/18 10:10 Labs: Laboratory Results - last 24 hr 09/24/18 09/24/18 09/24/18 10:10 10:10 15:50 WBC 5.7 RBC 4.29 Hgb 12.6 Hct 38.4 MCV 89.6 MCH 29.3 MCHC 32.7 L RDW 16.2 H Plt Count 156 MPV 10.3 Neut % (Auto) 73.0 Lymph % (Auto) 14.3 L [place] % (Auto) 9.5 Eos % (Auto) 2.6 Baso % (Auto) 0.6 Neut # (Auto) 4.2 Lymph # (Auto) 0.8 L [place] # (Auto) 0.5 Eos # (Auto) 0.1 Baso # (Auto) 0.0 pCO2 pO2 HCO3 ABG pH ABG Total CO2 ABG O2 Saturation ABG Base Excess Vadim Test ABG Potassium VBG pH VBG pCO2 VBG HCO3 VBG Total CO2 VBG O2 Sat (Calc) VBG Base Excess A-a O2 Difference Glucose Lactate Vent Mode FiO2 Crit Value Called To Crit Value Called By Crit Value Read Back Blood Gas Notified Time Sodium 136 Potassium 3.7 Chloride 103 Carbon Dioxide 26 Anion Gap 11 BUN 18 H Creatinine 0.7 Est GFR ( Amer) > 60 Est GFR (Non-Af Amer) > 60 POC Glucose (mg/dL) Random Glucose 200 H Calcium 9.6 Phosphorus 3.3 Magnesium 1.5 L Total Bilirubin 0.8 AST 27 ALT 50 Alkaline Phosphatase 71 Total Creatine Kinase 105 Troponin I < 0.0120 0.0230 NT-Pro-B Natriuret Pep 2100 H Total Protein 7.4 Albumin 4.2 Globulin 3.2 Albumin/Globulin Ratio 1.3 TSH 3rd Generation 0.79 Arterial Blood Potassium Urine Color Urine Clarity Urine pH Ur Specific Crystal Urine Protein Urine Glucose (UA) Urine Ketones Urine Blood Urine Nitrate Urine Bilirubin Urine Urobilinogen Ur Leukocyte Esterase Urine RBC (Auto) Ur Squamous Epith Cells 09/24/18 09/24/18 09/24/18 17:04 17:26 18:10 WBC RBC Hgb Hct MCV MCH MCHC RDW Plt Count MPV Neut % (Auto) Lymph % (Auto) [place] % (Auto) Eos % (Auto) Baso % (Auto) Neut # (Auto) Lymph # (Auto) [place] # (Auto) Eos # (Auto) Baso # (Auto) pCO2 pO2 61 H HCO3 ABG pH ABG Total CO2 ABG O2 Saturation ABG Base Excess Vadim Test ABG Potassium VBG pH 7.04 L* VBG pCO2 82 H* VBG HCO3 16.6 VBG Total CO2 24.7 VBG O2 Sat (Calc) 87.8 H VBG Base Excess -10.0 L A-a O2 Difference Glucose 177 H Lactate 5.4 H* Vent Mode FiO2 21.0 Crit Value Called To Dr regalado Crit Value Called By 60 Crit Value Read Back Y Blood Gas Notified Time 1736 Sodium 134.0 Potassium Chloride 105.0 Carbon Dioxide Anion Gap BUN Creatinine Est GFR ( Amer) Est GFR (Non-Af Amer) POC Glucose (mg/dL) 196 H Random Glucose Calcium Phosphorus Magnesium Total Bilirubin AST ALT Alkaline Phosphatase Total Creatine Kinase Troponin I NT-Pro-B Natriuret Pep Total Protein Albumin Globulin Albumin/Globulin Ratio TSH 3rd Generation Arterial Blood Potassium Urine Color Colorless Urine Clarity Clear Urine pH 6.0 Ur Specific [place] 1.005 Urine Protein Negative Urine Glucose (UA) Neg Urine Ketones Negative Urine Blood Negative Urine Nitrate Negative Urine Bilirubin Negative Urine Urobilinogen 0.2-1.0 Ur Leukocyte Esterase Neg Urine RBC (Auto) 1 Ur Squamous Epith Cells < 1 09/24/18 18:24 WBC RBC Hgb Hct MCV MCH MCHC RDW Plt Count MPV Neut % (Auto) Lymph % (Auto) [place] % (Auto) Eos % (Auto) Baso % (Auto) Neut # (Auto) Lymph # (Auto) [place] # (Auto) Eos # (Auto) Baso # (Auto) pCO2 34 L pO2 99 HCO3 28.3 H ABG pH 7.51 H ABG Total CO2 28.1 H ABG O2 Saturation 98.8 H ABG Base Excess 4.3 H Vadim Test Yes ABG Potassium 3.3 L VBG pH VBG pCO2 VBG HCO3 VBG Total CO2 VBG O2 Sat (Calc) VBG Base Excess A-a O2 Difference 87.0 Glucose 284 H Lactate 1.6 Vent Mode N/c FiO2 32.0 Crit Value Called To Crit Value Called By Crit Value Read Back Blood Gas Notified Time Sodium 137.0 Potassium Chloride 101.0 Carbon Dioxide Anion Gap BUN Creatinine Est GFR ( Amer) Est GFR (Non-Af Amer) POC Glucose (mg/dL) Random Glucose Calcium Phosphorus Magnesium Total Bilirubin AST ALT Alkaline Phosphatase Total Creatine Kinase Troponin I NT-Pro-B Natriuret Pep Total Protein Albumin Globulin Albumin/Globulin Ratio TSH 3rd Generation Arterial Blood Potassium 3.3 L Urine Color Urine Clarity Urine pH Ur Specific [place] Urine Protein Urine Glucose (UA) Urine Ketones Urine Blood Urine Nitrate Urine Bilirubin Urine Urobilinogen Ur Leukocyte Esterase Urine RBC (Auto) Ur Squamous Epith Cells
--- NOTE | 2018-09-24 20:06 | CP.PCM.CON ---
Past Patient History - Infectious Disease Hx of Infectious Diseases: None - Past Social History Smoking Status: Never Smoked - CARDIAC Hx Cardiac Disorders: No - PULMONARY Hx Asthma: Yes - NEUROLOGICAL Hx Seizures: No - HEENT Other/Comment: L cataract surgery years ago - ENDOCRINE/METABOLIC Hx Diabetes Insipidus: Yes - HEMATOLOGICAL/ONCOLOGICAL Hx Human Immunodeficiency Virus (HIV): No - GENITOURINARY/GYNECOLOGICAL Hx Sexually Transmitted Disorders: No - PSYCHIATRIC Hx Anxiety: Yes - SURGICAL HISTORY Hx Appendectomy: Yes - ANESTHESIA Hx Anesthesia: Yes Hx Anesthesia Reactions: No Meds Allergies/Adverse Reactions: Allergies Allergy/AdvReac Type Severity Reaction Status Date / Time No Known Allergies Allergy Verified 11/18/16 11:33 - Medications Medications: Current Medications Albuterol (Ventolin Hfa 90 Mcg/Actuation (8 G)) 2 puff IH RQ6 PRN PRN Reason: Shortness of Breath Albuterol/Ipratropium (Duoneb 3 Mg/0.5 Mg (3 Ml) Ud) 3 ml INH RQ4 [facility] Last Admin: 09/24/18 19:50 Dose: 3 ml Aspirin (Ecotrin) 81 mg PO DAILY [facility] Last Admin: 09/24/18 13:46 Dose: 81 mg Atorvastatin Calcium (Lipitor) 40 mg PO HS [facility] Carvedilol (Coreg) 25 mg PO Q12 [facility] Cholecalciferol (Vitamin D) 1,000 intlu PO Q48H [facility] Last Admin: 09/24/18 17:03 Dose: 1,000 intlu Dextrose (Dextrose 50% Inj) 0 ml IV STAT PRN; Protocol PRN Reason: Hypoglycemia Protocol Dextrose (Glutose 15) 0 gm PO ONCE PRN; Protocol PRN Reason: Hypoglycemia Protocol Enoxaparin Sodium (Lovenox) 40 mg SC DAILY [facility]; Protocol Furosemide (Lasix) 40 mg IVP BID [facility] Last Admin: 09/24/18 17:59 Dose: 40 mg Glucagon (Glucagen Diagnostic Kit) 0 mg IM STAT PRN; Protocol PRN Reason: Hypoglycemia Protocol Hydrochlorothiazide (Hydrodiuril) 25 mg PO DAILY [facility] Insulin Detemir (Levemir) 30 units SC HS [facility] Insulin Human Regular (Humulin R) 0 units SC ACHS [facility]; Protocol Last Admin: 09/24/18 17:07 Dose: 3 unit Levothyroxine Sodium (Synthroid) 75 mcg PO DAILY@0630 [facility] Lisinopril (Zestril) 20 mg PO DAILY [facility] Pantoprazole Sodium (Protonix Ec Tab) 40 mg PO DAILY [facility] Potassium Chloride (K-Dur 20 Meq Er Tab) 20 meq PO BID [facility] Last Admin: 09/24/18 17:58 Dose: 20 meq Results - Vital Signs Recent Vital Signs: Last Vital Signs Temp 97.9 F 09/24/18 20:01 Pulse 95 H 09/24/18 20:01 Resp 20 09/24/18 20:01 BP 149/83 09/24/18 20:01 Pulse Ox 99 09/24/18 20:01 - Labs Result Diagrams: 09/24/18 10:10 09/24/18 10:10 Labs: Laboratory Results - last 24 hr 09/24/18 09/24/18 09/24/18 10:10 10:10 15:50 WBC 5.7 RBC 4.29 Hgb 12.6 Hct 38.4 MCV 89.6 MCH 29.3 MCHC 32.7 L RDW 16.2 H Plt Count 156 MPV 10.3 Neut % (Auto) 73.0 Lymph % (Auto) 14.3 L Brooks % (Auto) 9.5 Eos % (Auto) 2.6 Baso % (Auto) 0.6 Neut # (Auto) 4.2 Lymph # (Auto) 0.8 L Brooks # (Auto) 0.5 Eos # (Auto) 0.1 Baso # (Auto) 0.0 pCO2 pO2 HCO3 ABG pH ABG Total CO2 ABG O2 Saturation ABG Base Excess Vadim Test ABG Potassium VBG pH VBG pCO2 VBG HCO3 VBG Total CO2 VBG O2 Sat (Calc) VBG Base Excess A-a O2 Difference Glucose Lactate Vent Mode FiO2 Crit Value Called To Crit Value Called By Crit Value Read Back Blood Gas Notified Time Sodium 136 Potassium 3.7 Chloride 103 Carbon Dioxide 26 Anion Gap 11 BUN 18 H Creatinine 0.7 Est GFR ( Amer) > 60 Est GFR (Non-Af Amer) > 60 POC Glucose (mg/dL) Random Glucose 200 H Calcium 9.6 Phosphorus 3.3 Magnesium 1.5 L Total Bilirubin 0.8 AST 27 ALT 50 Alkaline Phosphatase 71 Total Creatine Kinase 105 Troponin I < 0.0120 0.0230 NT-Pro-B Natriuret Pep 2100 H Total Protein 7.4 Albumin 4.2 Globulin 3.2 Albumin/Globulin Ratio 1.3 TSH 3rd Generation 0.79 Arterial Blood Potassium Urine Color Urine Clarity Urine pH Ur Specific [place] Urine Protein Urine Glucose (UA) Urine Ketones Urine Blood Urine Nitrate Urine Bilirubin Urine Urobilinogen Ur Leukocyte Esterase Urine RBC (Auto) Ur Squamous Epith Cells 09/24/18 09/24/18 09/24/18 17:04 17:26 18:10 WBC RBC Hgb Hct MCV MCH MCHC RDW Plt Count MPV Neut % (Auto) Lymph % (Auto) Brooks % (Auto) Eos % (Auto) Baso % (Auto) Neut # (Auto) Lymph # (Auto) Brooks # (Auto) Eos # (Auto) Baso # (Auto) pCO2 pO2 61 H HCO3 ABG pH ABG Total CO2 ABG O2 Saturation ABG Base Excess Vadim Test ABG Potassium VBG pH 7.04 L* VBG pCO2 82 H* VBG HCO3 16.6 VBG Total CO2 24.7 VBG O2 Sat (Calc) 87.8 H VBG Base Excess -10.0 L A-a O2 Difference Glucose 177 H Lactate 5.4 H* Vent Mode FiO2 21.0 Crit Value Called To Dr regalado Crit Value Called By 6035 Crit Value Read Back Y Blood Gas Notified Time 1736 Sodium 134.0 Potassium Chloride 105.0 Carbon Dioxide Anion Gap BUN Creatinine Est GFR ( Amer) Est GFR (Non-Af Amer) POC Glucose (mg/dL) 196 H Random Glucose Calcium Phosphorus Magnesium Total Bilirubin AST ALT Alkaline Phosphatase Total Creatine Kinase Troponin I NT-Pro-B Natriuret Pep Total Protein Albumin Globulin Albumin/Globulin Ratio TSH 3rd Generation Arterial Blood Potassium Urine Color Colorless Urine Clarity Clear Urine pH 6.0 Ur Specific [place] 1.005 Urine Protein Negative Urine Glucose (UA) Neg Urine Ketones Negative Urine Blood Negative Urine Nitrate Negative Urine Bilirubin Negative Urine Urobilinogen 0.2-1.0 Ur Leukocyte Esterase Neg Urine RBC (Auto) 1 Ur Squamous Epith Cells < 1 09/24/18 18:24 WBC RBC Hgb Hct MCV MCH MCHC RDW Plt Count MPV Neut % (Auto) Lymph % (Auto) Brooks % (Auto) Eos % (Auto) Baso % (Auto) Neut # (Auto) Lymph # (Auto) Brooks # (Auto) Eos # (Auto) Baso # (Auto) pCO2 34 L pO2 99 HCO3 28.3 H ABG pH 7.51 H ABG Total CO2 28.1 H ABG O2 Saturation 98.8 H ABG Base Excess 4.3 H Vadim Test Yes ABG Potassium 3.3 L VBG pH VBG pCO2 VBG HCO3 VBG Total CO2 VBG O2 Sat (Calc) VBG Base Excess A-a O2 Difference 87.0 Glucose 284 H Lactate 1.6 Vent Mode N/c FiO2 32.0 Crit Value Called To Crit Value Called By Crit Value Read Back Blood Gas Notified Time Sodium 137.0 Potassium Chloride 101.0 Carbon Dioxide Anion Gap BUN Creatinine Est GFR ( Amer) Est GFR (Non-Af Amer) POC Glucose (mg/dL) Random Glucose Calcium Phosphorus Magnesium Total Bilirubin AST ALT Alkaline Phosphatase Total Creatine Kinase Troponin I NT-Pro-B Natriuret Pep Total Protein Albumin Globulin Albumin/Globulin Ratio TSH 3rd Generation Arterial Blood Potassium 3.3 L Urine Color Urine Clarity Urine pH Ur Specific [place] Urine Protein Urine Glucose (UA) Urine Ketones Urine Blood Urine Nitrate Urine Bilirubin Urine Urobilinogen Ur Leukocyte Esterase Urine RBC (Auto) Ur Squamous Epith Cells
--- NOTE | 2018-09-24 20:41 | CARD ---
APPROVED REPORT Date of service: 09/24/2018 EKG Measurement Heart [id number] <Conclusion> Sinus rhythm with premature atrial complexes Rightward axis Borderline ECG
[2018-09-24] MEDS: Insulin Detemir 100 Units/ml Inj SC SCH (21:33)
[2018-09-24 21:39] LABS: BLOOD UREA NITROGEN 18 mg/dl (7-17); CALCIUM 9.7 mg/dL (8.4-10.2); GFR NON-AFRICAN AMERICAN > 60
[2018-09-25] MEDS: Albuterol-Ipratrop 3 mg / 0.5 (3 ml) UD INH SCH ×6 (05:05→23:33)
[2018-09-25 05:51] LABS: BASO % 0.1 % (0.0-2.0); HEMOGLOBIN 12.3 g/dL (12.0-16.0); LYMPH # 0.5 K/uL (1.0-4.3); LYMPH % 6.8 % (20.0-40.0); MEAN CELL VOLUME 88.5 fl (81.0-99.0); MEAN CORPUSCULAR HEMOGLOBIN 29.6 pg (27.0-31.0); MEAN CORPUSCULAR HGB CONC 33.5 g/dL (33.0-37.0); MEAN PLATELET VOLUME 10.4 fl (7.2-11.7); MONO # 0.2 K/uL (0.0-0.8); MONO % 3.1 % (0.0-10.0); NEUT # 6.7 K/uL (1.8-7.0); NRBC % 0.1 % (0.0-0.0); PLATELET COUNT 148 K/uL (130-400); RBC 4.13 Mil/uL (3.80-5.20); RED CELL DISTRIBUTION WIDTH 15.8 % (11.5-14.5); WHITE BLOOD COUNT 7.4 K/uL (4.8-10.8)
[2018-09-25 06:00] LABS: ALB/GLOB RATIO 1.2 (1.0-2.1); ALBUMIN 3.6 g/dL (3.5-5.0); ALT/SGPT 46 U/L (9-52); AST/SGOT 24 U/L (14-36); BLOOD UREA NITROGEN 19 mg/dl (7-17); CALCIUM 9.3 mg/dL (8.4-10.2); GFR NON-AFRICAN AMERICAN > 60
[2018-09-25 06:01] LABS: B-TYPE NATRIURETIC PEPTIDE 3320 pg/ml (0-900)
[2018-09-25] MEDS: Levothyroxine 75 MCG TAB PO SCH (06:09)
[2018-09-25] MEDS: Insulin Regular 100 units/ml SC SCH ×4 (06:37→21:04)
[2018-09-25] MEDS ORDERED: Potassium Chloride 20 mEq ER Tab PO ONE (07:04)
[2018-09-25] MEDS ORDERED: Magnesium Oxide 400 mg Tab UD PO ONE (07:05)
[2018-09-25 08:30] LABS: BANDS 2 % (0-2); LYMPHOCYTE 7 % (20-50); MONOCYTE 3 % (0-10); NEUTROPHIL 88 % (42-75); PLATELET ESTIMATE NORMAL (NORMAL); TOTAL CELLS COUNTED 100
[2018-09-25 08:32] LABS: ANISOCYTOSIS SLIGHT; LARGE PLATELETS PRESENT
--- NOTE | 2018-09-25 08:51 | CP.PCM.PN ---
<ChloeSultan valentino - Last Filed: 09/25/18 13:33> Subjective - Date & Time of Evaluation Date of Evaluation: 09/25/18 Time of Evaluation: 07:45 - Subjective Subjective: Patient seen and examined this morning with Dr. Cordero Patient had an RRR due to not feeling well and tachypnea yesterday evening. Patient reports her breathing has improved and feels less short of breath, currently on 2L NC saturating 98%. Denies any chest pain, nausea, vomiting or symptoms Objective - Vital Signs/Intake and Output Vital Signs (last 24 hours): Temp Pulse Resp BP Pulse Ox 98.2 F 81 18 148/82 96 09/25/18 07:50 09/25/18 07:50 09/25/18 07:50 09/25/18 07:50 09/25/18 07:50 - Medications Medications: Current Medications Albuterol (Ventolin Hfa 90 Mcg/Actuation (8 G)) 2 puff IH RQ6 PRN PRN Reason: Shortness of Breath Albuterol/Ipratropium (Duoneb 3 Mg/0.5 Mg (3 Ml) Ud) 3 ml INH RQ4 [facility] Last Admin: 09/25/18 08:14 Dose: 3 ml Aspirin (Ecotrin) 81 mg PO DAILY [facility] Last Admin: 09/24/18 13:46 Dose: 81 mg Atorvastatin Calcium (Lipitor) 40 mg PO HS [facility] Last Admin: 09/24/18 21:22 Dose: 40 mg Carvedilol (Coreg) 25 mg PO Q12 [facility] Last Admin: 09/24/18 21:22 Dose: 25 mg Cholecalciferol (Vitamin D) 1,000 intlu PO Q48H [facility] Last Admin: 09/24/18 17:03 Dose: 1,000 intlu Dextrose (Dextrose 50% Inj) 0 ml IV STAT PRN; Protocol PRN Reason: Hypoglycemia Protocol Dextrose (Glutose 15) 0 gm PO ONCE PRN; Protocol PRN Reason: Hypoglycemia Protocol Enoxaparin Sodium (Lovenox) 40 mg SC DAILY [facility]; Protocol Furosemide (Lasix) 40 mg IVP BID [facility] Last Admin: 09/24/18 17:59 Dose: 40 mg Glucagon (Glucagen Diagnostic Kit) 0 mg IM STAT PRN; Protocol PRN Reason: Hypoglycemia Protocol Hydrochlorothiazide (Hydrodiuril) 25 mg PO DAILY [facility] Insulin Detemir (Levemir) 30 units SC HS [facility] Last Admin: 09/24/18 21:33 Dose: 30 units Insulin Human Regular (Humulin R) 0 units SC [facility]; Protocol Last Admin: 09/25/18 06:37 Dose: 3 unit Levothyroxine Sodium (Synthroid) 75 mcg PO DAILY@0630 [facility] Last Admin: 09/25/18 06:09 Dose: 75 mcg Lisinopril (Zestril) 20 mg PO DAILY [facility] Methylprednisolone (Solu-Medrol) 40 mg IVP BID [facility] Pantoprazole Sodium (Protonix Ec Tab) 40 mg PO DAILY [facility] Potassium Chloride (K-Dur 20 Meq Er Tab) 20 meq PO BID [facility] Last Admin: 09/24/18 17:58 Dose: 20 meq - Labs Labs: 09/25/18 04:25 09/25/18 04:25 - Constitutional Appears: No Acute Distress, Other (on 2 L NC oxygen) - Head Exam Head Exam: NORMAL INSPECTION - Eye Exam Eye Exam: Normal appearance - ENT Exam ENT Exam: Mucous Membranes Moist - Neck Exam Neck Exam: Full ROM, Normal Inspection - Respiratory Exam Respiratory Exam: Prolonged Expiratory Phase, NORMAL BREATHING PATTERN. absent: Accessory Muscle Use, Wheezes, Respiratory Distress Additional comments: Significantly improved aeration from yesterday. +crackles on B/L base of lungs No wheezing - Cardiovascular Exam Cardiovascular Exam: REGULAR RHYTHM, +S1, +S2 - GI/Abdominal Exam GI & Abdominal Exam: Soft, Normal Bowel Sounds. absent: Tenderness - Extremities Exam Extremities Exam: Pedal Edema (improved from yesterday (1+)). absent: Calf Tenderness - Neurological Exam Neurological Exam: Alert, Awake, Oriented x3 - Psychiatric Exam Psychiatric exam: Normal Affect, Normal Mood - Skin Skin Exam: Normal Color, Warm Assessment and Plan (1) Shortness of breath Status: Acute (2) New onset of congestive heart failure Status: Acute (3) Asthma exacerbation Status: Acute (4) Type 2 diabetes mellitus Status: Chronic (5) Hypothyroid Status: Chronic (6) Hypertension Status: Chronic - Assessment and Plan (Free Text) Assessment: 73 year old female with PMHx asthma, DMII, HTN, Hypothyroism presents to [facility] ER with complaints of chest pressure, chest tightness and shortness of breath x 2 weeks associated B/L lower leg edema x 1 weeks and facial swelling since this morning. In ED, patients proBNP is elevated and CXR shows mild cardiomegaly. Patient is admitted for evaluation of dyspnea and new onset CHF. Plan: Shortness of breath likely 2/2 new onset CHF and/or asthma exacerbation -CBC and CMP unremarkable -CXR: IMPRESSION: No consolidation seen. Peribronchial thickening-a nonspecific bronchitis peribronchial inflammatory process compatible with this. Viral pneumonitis not excluded. Concomitant mild pulmonary venous congestion suspect. Mild cardiomegaly. Trace fluid and/or thickening in the lateral right minor fissure noted. -Chest CT: IMPRESSION: Unremarkable CT pulmonary angiogram. No pulmonary embolus. Small bilateral pleural effusions, associated compressive atelectasis. -EKG: sinus rhythm with PVC, no ST/T changes -Trop x 3 neg -ProBNP 2100 yesterday, 3320 this morning -s/p Lasix 40 mg IVP -s/p duoneb x1 and solumedrol 40 mg IVP -c/w duoneb q4 hr -Cardiology consult, Dr. Castillo, recommendation appreciated. - Echo : Normal LV function by echocardiogram. Moderate tricuspid regurgitation with moderate pulmonary hypertension per Dr. Castillo reading -f/u official ECHO report -f/u AM labs DMII -Resume home medications -SSI -hypoglycemia protocol HTN -resume home medication Hypothyroidism -c/w levothyroxine -f/u TSH DVT and PUD prophylaxis -Lovenox 40 mg sc -Pantoprazole 40 mg po daily Code status -full code Patient seen,examined and plan discussed with Dr. Consuelo Gomez, pgy-2 <Rashaun Cordero - Last Filed: 09/27/18 21:05> Objective - Vital Signs/Intake and Output Vital Signs (last 24 hours): Temp Pulse Resp BP Pulse Ox 98.0 F 69 20 135/83 100 09/27/18 20:34 09/27/18 20:34 09/27/18 20:34 09/27/18 20:34 09/27/18 20:34 - Medications Medications: Current Medications Albuterol (Ventolin Hfa 90 Mcg/Actuation (8 G)) 2 puff IH RQ6 PRN PRN Reason: Shortness of Breath Albuterol/Ipratropium (Duoneb 3 Mg/0.5 Mg (3 Ml) Ud) 3 ml INH RQ4 [facility] Last Admin: 09/27/18 19:02 Dose: 3 ml Aspirin (Ecotrin) 81 mg PO DAILY [facility] Last Admin: 09/27/18 09:33 Dose: 81 mg Atorvastatin Calcium (Lipitor) 40 mg PO HS [facility] Last Admin: 09/26/18 21:21 Dose: 40 mg Carvedilol (Coreg) 25 mg PO Q12 [facility] Last Admin: 09/27/18 09:32 Dose: 25 mg Cholecalciferol (Vitamin D) 1,000 intlu PO Q48H [facility] Last Admin: 09/26/18 16:24 Dose: 1,000 intlu Dextrose (Dextrose 50% Inj) 0 ml IV STAT PRN; Protocol PRN Reason: Hypoglycemia Protocol Dextrose (Glutose 15) 0 gm PO ONCE PRN; Protocol PRN Reason: Hypoglycemia Protocol Enoxaparin Sodium (Lovenox) 40 mg SC DAILY [facility]; Protocol Last Admin: 09/27/18 09:34 Dose: 40 mg Furosemide (Lasix) 40 mg PO DAILY [facility] Last Admin: 09/27/18 09:33 Dose: 40 mg Glucagon (Glucagen Diagnostic Kit) 0 mg IM STAT PRN; Protocol PRN Reason: Hypoglycemia Protocol Hydrochlorothiazide (Hydrodiuril) 25 mg PO DAILY [facility] Last Admin: 09/27/18 09:34 Dose: 25 mg Insulin Detemir (Levemir) 30 units SC HS [facility] Last Admin: 09/26/18 21:48 Dose: 30 units Insulin Human Regular (Humulin R) 0 units SC ACHS [facility]; Protocol Last Admin: 09/27/18 16:27 Dose: 3 unit Levothyroxine Sodium (Synthroid) 75 mcg PO DAILY@0630 [facility] Last Admin: 09/27/18 06:08 Dose: 75 mcg Lisinopril (Zestril) 20 mg PO DAILY [facility] Last Admin: 09/27/18 16:26 Dose: 20 mg Methylprednisolone (Solu-Medrol) 40 mg IVP BID [facility] Last Admin: 09/27/18 16:27 Dose: 40 mg Pantoprazole Sodium (Protonix Ec Tab) 40 mg PO DAILY [facility] Last Admin: 09/27/18 09:34 Dose: 40 mg Potassium Chloride (K-Dur 20 Meq Er Tab) 20 meq PO BID [facility] Last Admin: 09/27/18 16:28 Dose: 20 meq - Labs Labs: 09/26/18 04:00 09/26/18 06:45 Assessment and Plan - Assessment and Plan (Free Text) Plan: I was present during evaluation and discussed with Dr Patricia handy plans of care and management will monitor proBNp contiue diuretic Follow up with cardiology
[2018-09-25] MEDS ORDERED: Patient's Own Med (Lisinopril/Hydrochlorothiazide [Lisinopril-Hctz 20-25 Mg Tab] 1 TAB) PO SCH (09:00)
[2018-09-25] MEDS: Enoxaparin 40 mg Syringe SC SCH (09:04)
[2018-09-25] MEDS: Pantoprazole 40 mg EC Tab PO SCH (09:04)
[2018-09-25] MEDS: Potassium Chloride 20 mEq ER Tab PO SCH ×2 (09:08→16:44)
[2018-09-25] MEDS: MethylPREDNISolone 40 mg Vial IVP SCH ×2 (09:10→16:45)
[2018-09-25] MEDS: Insulin Detemir 100 Units/ml Inj SC SCH (21:07)
--- NOTE | 2018-09-25 21:16 | CARD ---
APPROVED REPORT Date of service: 09/24/2018 EXAM: Two-dimensional and M-mode echocardiogram with Doppler and color Doppler. Other Information Quality : GoodRhythm : NSR INDICATION Dyspnea Elevated Pro BNp 2D DIMENSIONS IVSd0.89 (0.7-1.1cm)LVDd4.49 (3.9-5.9cm) LVOT Diameter1.60 (1.8-2.4cm)PWd0.99 (0.7-1.1cm) IVSs1.22 (0.8-1.2cm)LVDs4.26 (2.5-4.0cm) FS (%) 5.2 %PWs0.96 (0.8-1.2cm) M-Mode DIMENSIONS Left Atrium (MM)5.21 (2.5-4.0cm)IVSd0.85 (0.7-1.1cm) Aortic Root3.03 (2.2-3.7cm)LVDd5.15 (4.0-5.6cm) Aortic Cusp Exc.2.03 (1.5-2.0cm)PWd1.03 (0.7-1.1cm) IVSs1.47 cmFS (%) 44 % LVDs2.88 (2.0-3.8cm)PWs1.59 cm Aortic Valve AoV Peak Vodhbjeb573.1cm/sAoV VTI26.2cmAO Peak GR.6mmHg LVOT Peak Rkdpvkks97.0cm/sLVOT VTI18.68cmAO Mean GR.4mmHg NAFISA (VMAX)0.83dd7NQC (VTI)0.74cm2 Mitral Valve MV E Xrsuebjt911.7cm/sMV DECEL [id number] A Gjmbzmvu18.8cm/s MV DVH62buE/A ratio2.1MVA (PHT)4.95cm2 TDI Medial E' Peak V9.37cm/sE/Lateral E'0.0E/Medial E'12.0 Tricuspid Valve TR Peak Xtqjnpqi170ic/sRAP [id number] Peak Gr.60mmHg [id number] LEFT VENTRICLE The left ventricle is normal size. There is normal left ventricular wall thickness. The left ventricular systolic function is normal. The estimated ejection fraction is 55-60% No regional wall motion abnormalities noted.. Transmitral Doppler flow pattern is Grade II-pseudonormal filling dynamics. No left ventricle thrombus noted on this study. There is no ventricular septal defect visualized. There is no left ventricular aneurysm. There is no mass noted in the left ventricle. RIGHT VENTRICLE The right ventricle is normal size. There is normal right ventricular wall thickness. The right ventricular systolic function is normal. ATRIA The left atrium is moderate to severely dilated. The right atrium size is normal. The interatrial septum is intact with no evidence for an atrial septal defect. AORTIC VALVE The aortic valve is normal in structure. No aortic regurgitation is present. There is no aortic valvular stenosis. There is no aortic valvular vegetation. MITRAL VALVE The mitral valve is normal in structure. There is no evidence of mitral valve prolapse. There is no mitral valve stenosis. There is moderate mitral valve regurgitation noted. TRICUSPID VALVE The tricuspid valve is normal in structure. There is mild to moderate tricuspid valve regurgitation noted. RVSP is calculated at 72 mm Hg and consistent with moderate to severe pulmonary HTN. There is no tricuspid valve prolapse or vegetation. There is no tricuspid valve stenosis. PULMONIC VALVE The pulmonary valve is normal in structure. There is no pulmonic valvular regurgitation. There is no pulmonic valvular stenosis. GREAT VESSELS The aortic root is normal in size. The ascending aorta is normal in size. The pulmonary artery is normal. The IVC is normal in size and collapses <50% with inspiration. PERICARDIAL EFFUSION There is no pericardial effusion. There is no pleural effusion. <Conclusion> The estimated ejection fraction is 55-60% Transmitral Doppler flow pattern is Grade II-pseudonormal filling dynamics. The left atrium is moderate to severely dilated. There is moderate mitral valve regurgitation noted. There is mild to moderate tricuspid valve regurgitation noted. RVSP is calculated at 72 mm Hg and consistent with moderate to severe pulmonary HTN. The IVC is normal in size and collapses <50% with inspiration.
--- NOTE | 2018-09-25 22:06 | CON ---
DATE: 09/25/2018 HISTORY OF PRESENT ILLNESS: Ms. Espino is a 73-year-old female who was referred for pulmonary evaluation by Dr. Mendosa. She was admitted with shortness of breath, exercise intolerance, tightness in the chest for the past two weeks prior to presentation, worse on the day of admission. She indicates that she came to the emergency room, was evaluated and discharged with a nebulizer but symptoms worsened, and she returned to the emergency room where she was admitted for workup and therapy of shortness of breath. She was noted to have an elevated proBNP and chest x-ray that showed cardiomegaly. She has been in the hospital for the past 24 hours and while on telemetry floor, rapid response team was called because she had difficulty breathing. PAST MEDICAL HISTORY: She has a past medical history of asthma, hypertension, diabetes mellitus, hypothyroidism. FAMILY HISTORY: Noncontributory. SOCIAL HISTORY: Lives alone. Does not smoke. Does not use drugs. REVIEW OF SYSTEMS: Essentially unremarkable. PHYSICAL EXAMINATION: GENERAL: The patient is alert and oriented. Appears much more comfortable since admission. VITAL SIGNS: Blood pressure 148/56 with a pulse of 83, respiratory rate of 20 per minute. She is febrile. O2 sat was 92% on nasal cannula oxygen on admission. SKIN: Shows fair turgor. HEENT: Pupils are equal and reactive to light and accommodation. Mouth shows fair hygiene. JVP flat. LUNGS: Fair aeration bilateral with some basal dullness. HEART: Regular. No murmurs or gallops appreciated. ABDOMEN: Soft, nontender. No organomegaly. EXTREMITIES: There is 1+ pitting pedal edema. CENTRAL NERVOUS SYSTEM: Grossly intact. LABORATORY DATA: WBC 5.7, hemoglobin 12.6, platelet count of . Sodium 136, potassium 3.7, BUN 18, creatinine 0.7, serum glucose of 200. Chest x-ray is remarkable for mild pulmonary venous congestion, mild cardiomegaly, trace fluid, thickening in the right minor fissure. Echocardiogram is reviewed and shows valvular heart disease and cardiomegaly. CT scan of the chest is remarkable for no evidence of pulmonary embolism. There was small bilateral pleural effusion associated with compressive atelectasis. Arterial blood gas: The pH of 7.51, pCO2 of 34, pO2 of 99; this is on 32% FiO2. Lactate level 1.6, down from 5.4. IMPRESSION: This clinical picture is more compatible with congestive heart failure due to valvular heart disease, with superimposed exacerbation of asthma. The patient also has an elevated lactate level on admission which is probably due to poor perfusion. There is also evidence of pulmonary hypertension on echocardiogram. This could be a combination of asthma and valvular heart disease. PLAN: We will continue diuretic therapy as ordered. Also continue therapy for asthma exacerbation. Cardiac evaluation for valvular heart disease. We will continue to follow with you. Clayton Aiken MD
[2018-09-26] MEDS: Albuterol-Ipratrop 3 mg / 0.5 (3 ml) UD INH SCH ×6 (04:59→23:53)
[2018-09-26] MEDS: Levothyroxine 75 MCG TAB PO SCH (06:30)
[2018-09-26] MEDS: Insulin Regular 100 units/ml SC SCH ×4 (06:44→21:44)
[2018-09-26 07:16] LABS: BASO % 0.2 % (0.0-2.0); HEMOGLOBIN 11.8 g/dL (12.0-16.0); LYMPH # 0.4 K/uL (1.0-4.3); LYMPH % 3.7 % (20.0-40.0); MEAN CELL VOLUME 88.8 fl (81.0-99.0); MEAN CORPUSCULAR HEMOGLOBIN 29.3 pg (27.0-31.0); MEAN PLATELET VOLUME 10.4 fl (7.2-11.7); MONO # 0.6 K/uL (0.0-0.8); MONO % 5.5 % (0.0-10.0); NEUT # 10.1 K/uL (1.8-7.0); NEUT % 90.6 % (50.0-75.0); PLATELET COUNT 148 K/uL (130-400); RBC 4.04 Mil/uL (3.80-5.20); RED CELL DISTRIBUTION WIDTH 15.9 % (11.5-14.5); WHITE BLOOD COUNT 11.1 K/uL (4.8-10.8)
[2018-09-26 07:51] LABS: ALB/GLOB RATIO 1.3 (1.0-2.1); ALBUMIN 3.6 g/dL (3.5-5.0); ALT/SGPT 47 U/L (9-52); AST/SGOT 18 U/L (14-36); BLOOD UREA NITROGEN 24 mg/dl (7-17); CALCIUM 9.3 mg/dL (8.4-10.2); GFR NON-AFRICAN AMERICAN > 60
[2018-09-26 08:13] LABS: B-TYPE NATRIURETIC PEPTIDE 1440 pg/ml (0-900)
[2018-09-26 09:01] LABS: LYMPHOCYTE 4 % (20-50); MONOCYTE 5 % (0-10); NEUTROPHIL 91 % (42-75); PLATELET ESTIMATE SLIGHTLY DECREASED (NORMAL); TOTAL CELLS COUNTED 100
[2018-09-26 09:02] LABS: ANISOCYTOSIS SLIGHT; LARGE PLATELETS PRESENT; OVALOCYTES MODERATE
[2018-09-26] MEDS: Potassium Chloride 20 mEq ER Tab PO SCH ×2 (09:24→16:22)
[2018-09-26] MEDS: Enoxaparin 40 mg Syringe SC SCH (09:25)
[2018-09-26] MEDS: Pantoprazole 40 mg EC Tab PO SCH (09:25)
[2018-09-26] MEDS: MethylPREDNISolone 40 mg Vial IVP SCH ×2 (09:26→16:23)
--- NOTE | 2018-09-26 10:30 | CP.PCM.PN ---
Subjective - Date & Time of Evaluation Date of Evaluation: 09/26/18 Time of Evaluation: 10:00 - Subjective Subjective: patient feels better today. Objective - Vital Signs/Intake and Output Vital Signs (last 24 hours): Temp Pulse Resp BP Pulse Ox 98.3 F 78 18 127/78 100 09/26/18 08:10 09/26/18 09:24 09/26/18 08:10 09/26/18 09:24 09/26/18 08:10 - Medications Medications: Current Medications Albuterol (Ventolin Hfa 90 Mcg/Actuation (8 G)) 2 puff IH RQ6 PRN PRN Reason: Shortness of Breath Albuterol/Ipratropium (Duoneb 3 Mg/0.5 Mg (3 Ml) Ud) 3 ml INH RQ4 [facility] Last Admin: 09/26/18 07:29 Dose: 3 ml Aspirin (Ecotrin) 81 mg PO DAILY [facility] Last Admin: 09/26/18 09:23 Dose: 81 mg Atorvastatin Calcium (Lipitor) 40 mg PO HS [facility] Last Admin: 09/25/18 21:00 Dose: 40 mg Carvedilol (Coreg) 25 mg PO Q12 [facility] Last Admin: 09/26/18 09:23 Dose: 25 mg Cholecalciferol (Vitamin D) 1,000 intlu PO Q48H [facility] Last Admin: 09/24/18 17:03 Dose: 1,000 intlu Dextrose (Dextrose 50% Inj) 0 ml IV STAT PRN; Protocol PRN Reason: Hypoglycemia Protocol Dextrose (Glutose 15) 0 gm PO ONCE PRN; Protocol PRN Reason: Hypoglycemia Protocol Enoxaparin Sodium (Lovenox) 40 mg SC DAILY [facility]; Protocol Last Admin: 09/26/18 09:25 Dose: 40 mg Furosemide (Lasix) 40 mg IVP BID [facility] Last Admin: 09/26/18 09:24 Dose: 40 mg Glucagon (Glucagen Diagnostic Kit) 0 mg IM STAT PRN; Protocol PRN Reason: Hypoglycemia Protocol Hydrochlorothiazide (Hydrodiuril) 25 mg PO DAILY [facility] Last Admin: 09/26/18 09:23 Dose: 25 mg Insulin Detemir (Levemir) 30 units SC HS [facility] Last Admin: 09/25/18 21:07 Dose: 30 units Insulin Human Regular (Humulin R) 0 units SC [facility]; Protocol Last Admin: 09/26/18 06:44 Dose: 3 unit Levothyroxine Sodium (Synthroid) 75 mcg PO DAILY@0630 [facility] Last Admin: 09/26/18 06:30 Dose: 75 mcg Lisinopril (Zestril) 20 mg PO DAILY [facility] Last Admin: 09/26/18 09:24 Dose: 20 mg Methylprednisolone (Solu-Medrol) 40 mg IVP BID [facility] Last Admin: 09/26/18 09:26 Dose: 40 mg Pantoprazole Sodium (Protonix Ec Tab) 40 mg PO DAILY [facility] Last Admin: 09/26/18 09:25 Dose: 40 mg Potassium Chloride (K-Dur 20 Meq Er Tab) 20 meq PO BID [facility] Last Admin: 09/26/18 09:24 Dose: 20 meq - Labs Labs: 09/26/18 04:00 09/26/18 06:45 - Constitutional Appears: Non-toxic - Head Exam Head Exam: NORMAL INSPECTION - Eye Exam Eye Exam: Normal appearance - ENT Exam ENT Exam: Mucous Membranes Moist - Neck Exam Neck Exam: Full ROM - Respiratory Exam Respiratory Exam: Decreased Breath Sounds - Cardiovascular Exam Cardiovascular Exam: REGULAR RHYTHM - GI/Abdominal Exam GI & Abdominal Exam: Normal Bowel Sounds - Rectal Exam Rectal Exam: Deferred - Extremities Exam Extremities Exam: absent: Pedal Edema - Back Exam Back Exam: NORMAL INSPECTION - Neurological Exam Neurological Exam: Alert - Psychiatric Exam Psychiatric exam: Normal Affect - Skin Skin Exam: Normal Color Assessment and Plan (1) Pulmonary hypertension Assessment & Plan: improved on current therapy. gely cause of the patient's elevated pro BNP Status: Acute (2) Acute diastolic heart failure Assessment & Plan: can change lasix to 40 mg po daily Status: Acute
--- NOTE | 2018-09-26 11:50 | CP.PCM.PN ---
Subjective - Date & Time of Evaluation Date of Evaluation: 09/26/18 Time of Evaluation: 11:50 - Subjective Subjective: SOB RESOLVED NO CHEST PAINS/COUGH Objective - Vital Signs/Intake and Output Vital Signs (last 24 hours): Temp Pulse Resp BP Pulse Ox 98.3 F 78 18 127/78 100 09/26/18 08:10 09/26/18 09:24 09/26/18 08:10 09/26/18 09:24 09/26/18 08:10 - Medications Medications: Current Medications Albuterol (Ventolin Hfa 90 Mcg/Actuation (8 G)) 2 puff IH RQ6 PRN PRN Reason: Shortness of Breath Albuterol/Ipratropium (Duoneb 3 Mg/0.5 Mg (3 Ml) Ud) 3 ml INH RQ4 [facility] Last Admin: 09/26/18 11:03 Dose: 3 ml Aspirin (Ecotrin) 81 mg PO DAILY [facility] Last Admin: 09/26/18 09:23 Dose: 81 mg Atorvastatin Calcium (Lipitor) 40 mg PO HS [facility] Last Admin: 09/25/18 21:00 Dose: 40 mg Carvedilol (Coreg) 25 mg PO Q12 [facility] Last Admin: 09/26/18 09:23 Dose: 25 mg Cholecalciferol (Vitamin D) 1,000 intlu PO Q48H [facility] Last Admin: 09/24/18 17:03 Dose: 1,000 intlu Dextrose (Dextrose 50% Inj) 0 ml IV STAT PRN; Protocol PRN Reason: Hypoglycemia Protocol Dextrose (Glutose 15) 0 gm PO ONCE PRN; Protocol PRN Reason: Hypoglycemia Protocol Enoxaparin Sodium (Lovenox) 40 mg SC DAILY [facility]; Protocol Last Admin: 09/26/18 09:25 Dose: 40 mg Furosemide (Lasix) 40 mg PO DAILY [facility] Glucagon (Glucagen Diagnostic Kit) 0 mg IM STAT PRN; Protocol PRN Reason: Hypoglycemia Protocol Hydrochlorothiazide (Hydrodiuril) 25 mg PO DAILY [facility] Last Admin: 09/26/18 09:23 Dose: 25 mg Insulin Detemir (Levemir) 30 units SC HS [facility] Last Admin: 09/25/18 21:07 Dose: 30 units Insulin Human Regular (Humulin R) 0 units SC ACHS [facility]; Protocol Last Admin: 09/26/18 06:44 Dose: 3 unit Levothyroxine Sodium (Synthroid) 75 mcg PO DAILY@0630 [facility] Last Admin: 09/26/18 06:30 Dose: 75 mcg Lisinopril (Zestril) 20 mg PO DAILY [facility] Last Admin: 09/26/18 09:24 Dose: 20 mg Methylprednisolone (Solu-Medrol) 40 mg IVP BID [facility] Last Admin: 09/26/18 09:26 Dose: 40 mg Pantoprazole Sodium (Protonix Ec Tab) 40 mg PO DAILY [facility] Last Admin: 09/26/18 09:25 Dose: 40 mg Potassium Chloride (K-Dur 20 Meq Er Tab) 20 meq PO BID [facility] Last Admin: 09/26/18 09:24 Dose: 20 meq - Labs Labs: 09/26/18 04:00 09/26/18 06:45 - Constitutional Appears: No Acute Distress - Head Exam Head Exam: ATRAUMATIC, NORMAL INSPECTION, NORMOCEPHALIC - Eye Exam Eye Exam: EOMI, Normal appearance, PERRL Pupil Exam: NORMAL ACCOMODATION, PERRL - ENT Exam ENT Exam: Mucous Membranes Moist, Normal Exam - Neck Exam Neck Exam: Full ROM, Normal Inspection. absent: Lymphadenopathy - Respiratory Exam Respiratory Exam: Clear to Ausculation Bilateral, NORMAL BREATHING PATTERN - Cardiovascular Exam Cardiovascular Exam: REGULAR RHYTHM, +S1, +S2. absent: Murmur - GI/Abdominal Exam GI & Abdominal Exam: Soft, Normal Bowel Sounds. absent: Tenderness - Rectal Exam Rectal Exam: NORMAL INSPECTION - Extremities Exam Extremities Exam: Full ROM, Normal Capillary Refill, Normal Inspection. absent: Joint Swelling, Pedal Edema - Back Exam Back Exam: NORMAL INSPECTION - Neurological Exam Neurological Exam: Alert, Awake, CN II-XII Intact, Normal Gait, Oriented x3 - Psychiatric Exam Psychiatric exam: Normal Affect, Normal Mood - Skin Skin Exam: Dry, Intact, Normal Color, Warm Assessment and Plan - Assessment and Plan (Free Text) Assessment: PULMONARY HTN CHF--IMPROVED Plan: CONTINUE RX ORDERED
[2018-09-26] MEDS: Cholecalciferol 1,000 INTLU TAB PO SCH (16:24)
[2018-09-26] MEDS: Insulin Detemir 100 Units/ml Inj SC SCH (21:48)
[2018-09-27] MEDS: Albuterol-Ipratrop 3 mg / 0.5 (3 ml) UD INH SCH ×5 (05:07→19:02)
[2018-09-27] MEDS: Levothyroxine 75 MCG TAB PO SCH (06:08)
[2018-09-27] MEDS: Insulin Regular 100 units/ml SC SCH ×4 (06:30→21:27)
[2018-09-27] MEDS: Pantoprazole 40 mg EC Tab PO SCH (09:34)
[2018-09-27] MEDS: Enoxaparin 40 mg Syringe SC SCH (09:34)
[2018-09-27] MEDS: Potassium Chloride 20 mEq ER Tab PO SCH ×2 (09:34→16:28)
[2018-09-27] MEDS: MethylPREDNISolone 40 mg Vial IVP SCH ×2 (09:35→16:27)
--- NOTE | 2018-09-27 10:40 | CP.PCM.PN ---
Subjective - Date & Time of Evaluation Date of Evaluation: 09/27/18 Time of Evaluation: 10:40 - Subjective Subjective: FEELS BETTER NO APPARENT RESPIRATORY DISTRESS VSS O2 SAT ADEQUATE Objective - Vital Signs/Intake and Output Vital Signs (last 24 hours): Temp Pulse Resp BP Pulse Ox 98.1 F 63 18 134/81 98 09/27/18 08:04 09/27/18 09:32 09/27/18 08:04 09/27/18 09:33 09/27/18 08:04 - Medications Medications: Current Medications Albuterol (Ventolin Hfa 90 Mcg/Actuation (8 G)) 2 puff IH RQ6 PRN PRN Reason: Shortness of Breath Albuterol/Ipratropium (Duoneb 3 Mg/0.5 Mg (3 Ml) Ud) 3 ml INH RQ4 [facility] Last Admin: 09/27/18 08:12 Dose: 3 ml Aspirin (Ecotrin) 81 mg PO DAILY [facility] Last Admin: 09/27/18 09:33 Dose: 81 mg Atorvastatin Calcium (Lipitor) 40 mg PO HS [facility] Last Admin: 09/26/18 21:21 Dose: 40 mg Carvedilol (Coreg) 25 mg PO Q12 [facility] Last Admin: 09/27/18 09:32 Dose: 25 mg Cholecalciferol (Vitamin D) 1,000 intlu PO Q48H [facility] Last Admin: 09/26/18 16:24 Dose: 1,000 intlu Dextrose (Dextrose 50% Inj) 0 ml IV STAT PRN; Protocol PRN Reason: Hypoglycemia Protocol Dextrose (Glutose 15) 0 gm PO ONCE PRN; Protocol PRN Reason: Hypoglycemia Protocol Enoxaparin Sodium (Lovenox) 40 mg SC DAILY [facility]; Protocol Last Admin: 09/27/18 09:34 Dose: 40 mg Furosemide (Lasix) 40 mg PO DAILY [facility] Last Admin: 09/27/18 09:33 Dose: 40 mg Glucagon (Glucagen Diagnostic Kit) 0 mg IM STAT PRN; Protocol PRN Reason: Hypoglycemia Protocol Hydrochlorothiazide (Hydrodiuril) 25 mg PO DAILY [facility] Last Admin: 09/27/18 09:34 Dose: 25 mg Insulin Detemir (Levemir) 30 units SC HS [facility] Last Admin: 09/26/18 21:48 Dose: 30 units Insulin Human Regular (Humulin R) 0 units SC ACHS [facility]; Protocol Last Admin: 09/27/18 06:30 Dose: 2 unit Levothyroxine Sodium (Synthroid) 75 mcg PO DAILY@0630 [facility] Last Admin: 09/27/18 06:08 Dose: 75 mcg Lisinopril (Zestril) 20 mg PO DAILY [facility] Last Admin: 09/26/18 09:24 Dose: 20 mg Methylprednisolone (Solu-Medrol) 40 mg IVP BID [facility] Last Admin: 09/27/18 09:35 Dose: 40 mg Pantoprazole Sodium (Protonix Ec Tab) 40 mg PO DAILY [facility] Last Admin: 09/27/18 09:34 Dose: 40 mg Potassium Chloride (K-Dur 20 Meq Er Tab) 20 meq PO BID [facility] Last Admin: 09/27/18 09:34 Dose: 20 meq - Labs Labs: 09/26/18 04:00 09/26/18 06:45 - Constitutional Appears: No Acute Distress - Head Exam Head Exam: ATRAUMATIC, NORMAL INSPECTION, NORMOCEPHALIC - Eye Exam Eye Exam: EOMI, Normal appearance, PERRL Pupil Exam: NORMAL ACCOMODATION, PERRL - ENT Exam ENT Exam: Mucous Membranes Moist, Normal Exam - Neck Exam Neck Exam: Full ROM, Normal Inspection. absent: Lymphadenopathy - Respiratory Exam Respiratory Exam: Clear to Ausculation Bilateral, NORMAL BREATHING PATTERN - Cardiovascular Exam Cardiovascular Exam: REGULAR RHYTHM, +S1, +S2. absent: Murmur - GI/Abdominal Exam GI & Abdominal Exam: Soft, Normal Bowel Sounds. absent: Tenderness - Rectal Exam Rectal Exam: NORMAL INSPECTION - Extremities Exam Extremities Exam: Full ROM, Normal Capillary Refill, Normal Inspection. absent: Joint Swelling, Pedal Edema - Back Exam Back Exam: NORMAL INSPECTION - Neurological Exam Neurological Exam: Alert, Awake, CN II-XII Intact, Normal Gait, Oriented x3 - Psychiatric Exam Psychiatric exam: Normal Affect, Normal Mood - Skin Skin Exam: Dry, Intact, Normal Color, Warm Assessment and Plan - Assessment and Plan (Free Text) Assessment: RESPIRATORY DISTRESS RESOLVED Plan: NO FURTHER PULMONARY INTERVENTION FOR NOW WILL SIGN OFF CASE AND SEE AGAIN AT YOUR REQUEST
--- NOTE | 2018-09-27 21:08 | CP.PCM.PN ---
Subjective - Date & Time of Evaluation Date of Evaluation: 09/26/18 Time of Evaluation: 09:00 - Subjective Subjective: patient feels a lot better but still with SOB NOted elevated FBS ON levemir but not on po meds Has no chest pain. Objective - Vital Signs/Intake and Output Vital Signs (last 24 hours): Temp Pulse Resp BP Pulse Ox 98.0 F 69 20 135/83 100 09/27/18 20:34 09/27/18 20:34 09/27/18 20:34 09/27/18 20:34 09/27/18 20:34 - Medications Medications: Current Medications Albuterol (Ventolin Hfa 90 Mcg/Actuation (8 G)) 2 puff IH RQ6 PRN PRN Reason: Shortness of Breath Albuterol/Ipratropium (Duoneb 3 Mg/0.5 Mg (3 Ml) Ud) 3 ml INH RQ4 [facility] Last Admin: 09/27/18 19:02 Dose: 3 ml Aspirin (Ecotrin) 81 mg PO DAILY [facility] Last Admin: 09/27/18 09:33 Dose: 81 mg Atorvastatin Calcium (Lipitor) 40 mg PO HS [facility] Last Admin: 09/26/18 21:21 Dose: 40 mg Carvedilol (Coreg) 25 mg PO Q12 [facility] Last Admin: 09/27/18 09:32 Dose: 25 mg Cholecalciferol (Vitamin D) 1,000 intlu PO Q48H [facility] Last Admin: 09/26/18 16:24 Dose: 1,000 intlu Dextrose (Dextrose 50% Inj) 0 ml IV STAT PRN; Protocol PRN Reason: Hypoglycemia Protocol Dextrose (Glutose 15) 0 gm PO ONCE PRN; Protocol PRN Reason: Hypoglycemia Protocol Enoxaparin Sodium (Lovenox) 40 mg SC DAILY [facility]; Protocol Last Admin: 09/27/18 09:34 Dose: 40 mg Furosemide (Lasix) 40 mg PO DAILY [facility] Last Admin: 09/27/18 09:33 Dose: 40 mg Glucagon (Glucagen Diagnostic Kit) 0 mg IM STAT PRN; Protocol PRN Reason: Hypoglycemia Protocol Hydrochlorothiazide (Hydrodiuril) 25 mg PO DAILY [facility] Last Admin: 09/27/18 09:34 Dose: 25 mg Insulin Detemir (Levemir) 30 units SC [facility] Last Admin: 09/26/18 21:48 Dose: 30 units Insulin Human Regular (Humulin R) 0 units SC ACHS [facility]; Protocol Last Admin: 09/27/18 16:27 Dose: 3 unit Levothyroxine Sodium (Synthroid) 75 mcg PO DAILY@0630 [facility] Last Admin: 09/27/18 06:08 Dose: 75 mcg Lisinopril (Zestril) 20 mg PO DAILY [facility] Last Admin: 09/27/18 16:26 Dose: 20 mg Methylprednisolone (Solu-Medrol) 40 mg IVP BID [facility] Last Admin: 09/27/18 16:27 Dose: 40 mg Pantoprazole Sodium (Protonix Ec Tab) 40 mg PO DAILY [facility] Last Admin: 09/27/18 09:34 Dose: 40 mg Potassium Chloride (K-Dur 20 Meq Er Tab) 20 meq PO BID [facility] Last Admin: 09/27/18 16:28 Dose: 20 meq - Labs Labs: 09/26/18 04:00 09/26/18 06:45 - Head Exam Head Exam: NORMAL INSPECTION - Eye Exam Eye Exam: Normal appearance - ENT Exam ENT Exam: Mucous Membranes Moist - Respiratory Exam Respiratory Exam: Decreased Breath Sounds, Rales - Cardiovascular Exam Cardiovascular Exam: REGULAR RHYTHM - GI/Abdominal Exam GI & Abdominal Exam: Normal Bowel Sounds - Neurological Exam Neurological Exam: Awake Assessment and Plan (1) Acute diastolic heart failure Status: Acute (2) New onset of congestive heart failure Status: Acute (3) Pulmonary hypertension Status: Acute (4) Hypothyroid Status: Chronic (5) Type 2 diabetes mellitus Status: Chronic (6) Hypertension Status: Chronic - Assessment and Plan (Free Text) Plan: Cont meds Continue caution diuresis Cont monitor will start po meds for DM 2 in am.
[2018-09-27] MEDS: Insulin Detemir 100 Units/ml Inj SC SCH (21:26)
--- NOTE | 2018-09-27 21:35 | CP.PCM.PN ---
Subjective - Date & Time of Evaluation Date of Evaluation: 09/27/18 Time of Evaluation: 17:00 - Subjective Subjective: Patient feels better although still with SOB Noted persistently elevated FBS. On Levemir. renal function is normal. Objective - Vital Signs/Intake and Output Vital Signs (last 24 hours): Temp Pulse Resp BP Pulse Ox 98.0 F 69 20 135/83 100 09/27/18 20:34 09/27/18 20:34 09/27/18 20:34 09/27/18 20:34 09/27/18 20:34 - Medications Medications: Current Medications Albuterol (Ventolin Hfa 90 Mcg/Actuation (8 G)) 2 puff IH RQ6 PRN PRN Reason: Shortness of Breath Albuterol/Ipratropium (Duoneb 3 Mg/0.5 Mg (3 Ml) Ud) 3 ml INH RQ4 [facility] Last Admin: 09/27/18 19:02 Dose: 3 ml Aspirin (Ecotrin) 81 mg PO DAILY [facility] Last Admin: 09/27/18 09:33 Dose: 81 mg Atorvastatin Calcium (Lipitor) 40 mg PO HS [facility] Last Admin: 09/26/18 21:21 Dose: 40 mg Carvedilol (Coreg) 25 mg PO Q12 [facility] Last Admin: 09/27/18 09:32 Dose: 25 mg Cholecalciferol (Vitamin D) 1,000 intlu PO Q48H [facility] Last Admin: 09/26/18 16:24 Dose: 1,000 intlu Dextrose (Dextrose 50% Inj) 0 ml IV STAT PRN; Protocol PRN Reason: Hypoglycemia Protocol Dextrose (Glutose 15) 0 gm PO ONCE PRN; Protocol PRN Reason: Hypoglycemia Protocol Enoxaparin Sodium (Lovenox) 40 mg SC DAILY [facility]; Protocol Last Admin: 09/27/18 09:34 Dose: 40 mg Furosemide (Lasix) 40 mg PO DAILY [facility] Last Admin: 09/27/18 09:33 Dose: 40 mg Glucagon (Glucagen Diagnostic Kit) 0 mg IM STAT PRN; Protocol PRN Reason: Hypoglycemia Protocol Hydrochlorothiazide (Hydrodiuril) 25 mg PO DAILY [facility] Last Admin: 09/27/18 09:34 Dose: 25 mg Insulin Detemir (Levemir) 30 units SC HS [facility] Last Admin: 09/26/18 21:48 Dose: 30 units Insulin Human Regular (Humulin R) 0 units SC ACHS [facility]; Protocol Last Admin: 09/27/18 16:27 Dose: 3 unit Levothyroxine Sodium (Synthroid) 75 mcg PO DAILY@0630 [facility] Last Admin: 09/27/18 06:08 Dose: 75 mcg Lisinopril (Zestril) 20 mg PO DAILY [facility] Last Admin: 09/27/18 16:26 Dose: 20 mg Methylprednisolone (Solu-Medrol) 40 mg IVP BID [facility] Last Admin: 09/27/18 16:27 Dose: 40 mg Pantoprazole Sodium (Protonix Ec Tab) 40 mg PO DAILY [facility] Last Admin: 09/27/18 09:34 Dose: 40 mg Potassium Chloride (K-Dur 20 Meq Er Tab) 20 meq PO BID [facility] Last Admin: 09/27/18 16:28 Dose: 20 meq - Labs Labs: 09/26/18 04:00 09/26/18 06:45 - Eye Exam Eye Exam: Normal appearance - ENT Exam ENT Exam: Mucous Membranes Moist - Respiratory Exam Respiratory Exam: Decreased Breath Sounds - Cardiovascular Exam Cardiovascular Exam: REGULAR RHYTHM - GI/Abdominal Exam GI & Abdominal Exam: Normal Bowel Sounds - Neurological Exam Neurological Exam: Awake Assessment and Plan (1) Acute diastolic heart failure Status: Acute (2) New onset of congestive heart failure Status: Acute (3) Pulmonary hypertension Status: Acute (4) Hypothyroid Status: Chronic (5) Type 2 diabetes mellitus Status: Chronic (6) Hypertension Status: Chronic - Assessment and Plan (Free Text) Plan: Cont meds Cont tx Cont meds start januvia and metformin
[2018-09-28] MEDS: Albuterol-Ipratrop 3 mg / 0.5 (3 ml) UD INH SCH ×4 (00:03→12:01)
[2018-09-28] MEDS: Levothyroxine 75 MCG TAB PO SCH (07:31)
[2018-09-28 07:43] VITALS: RESP 20
[2018-09-28] MEDS: Insulin Regular 100 units/ml SC SCH ×2 (08:37→12:14)
[2018-09-28] MEDS: Potassium Chloride 20 mEq ER Tab PO SCH (08:39)
[2018-09-28] MEDS: Pantoprazole 40 mg EC Tab PO SCH (08:41)
[2018-09-28] MEDS: Enoxaparin 40 mg Syringe SC SCH (08:42)
[2018-09-28] MEDS ORDERED: MethylPREDNISolone 40 mg Vial IVP SCH (09:00)
[2018-09-28] MEDS ORDERED: methylPREDNISolone 20 MG in Sodium Chloride 0.9% 50 ML IV SCH (09:00)
[2018-09-28 11:14] VITALS: PULSE 69
[2018-09-28 12:06] VITALS: TEMP 97.7; O2SAT 96
[2018-09-28 12:13] VITALS: BP 130/74
== END 2018-09-28 15:04 | disposition home or self-care (01) | DRG 291 ==
LOC: H.ER 09:18 → H.ERHOLD 12:47 → H.TEL 17:15
PROVIDERS: ADMIT Internal Medicine; ATTEND Internal Medicine
DX: I11.0 Hypertensive heart disease with heart failure (principal); I50.31 Acute diastolic (congestive) heart failure; J45.901 Unspecified asthma with (acute) exacerbation; E11.9 Type 2 diabetes mellitus without complications; E03.9 Hypothyroidism, unspecified; E78.5 Hyperlipidemia, unspecified; I07.1 Rheumatic tricuspid insufficiency; I27.20 Pulmonary hypertension, unspecified; Z79.82 Long term (current) use of aspirin; Z79.890 Hormone replacement therapy; Z79.4 Long term (current) use of insulin; F41.9 Anxiety disorder, unspecified

== ENCOUNTER 2018-10-13 19:20 | Emergency (ER) | payer MEDICARE ==
[2018-10-13 19:20] VITALS: BMI 35.6
[2018-10-13 20:12] LABS: BASO # 0.1 K/uL (0.0-0.2); BASO % 0.9 % (0.0-2.0); EOS # 0.2 K/uL (0.0-0.7); EOS % 2.7 % (0.0-4.0); HEMOGLOBIN 13.6 g/dL (12.0-16.0); LYMPH % 15.9 % (20.0-40.0); MEAN CELL VOLUME 87.3 fl (81.0-99.0); MEAN CORPUSCULAR HEMOGLOBIN 28.8 pg (27.0-31.0); MEAN PLATELET VOLUME 9.6 fl (7.2-11.7); MONO # 0.8 K/uL (0.0-0.8); MONO % 12.4 % (0.0-10.0); NEUT # 4.2 K/uL (1.8-7.0); NEUT % 68.1 % (50.0-75.0); RBC 4.71 Mil/uL (3.80-5.20); RED CELL DISTRIBUTION WIDTH 15.2 % (11.5-14.5); WHITE BLOOD COUNT 6.2 K/uL (4.8-10.8)
--- NOTE | 2018-10-13 20:28 | ED PDOC ---
HPI: Psych/Substance Abuse Time Seen by Provider: 10/13/18 19:38 Chief Complaint (Nursing): Psychiatric Evaluation Chief Complaint (Provider): Psychiatric Evaluation History Per: Patient History/Exam Limitations: no limitations Additional Complaint(s): 73 year old female with a past medical history of hypertension, hyperlipidemia and diabetes, who presents to the emergency department complaining of "hunger strike" and states that she has not eaten in x3 days because she is having a dispute with her tenant. Patient reports that she is taking her medications and insulin regularly. She admits she only said she was having SI to get attention and has no SI or Hi currently. PMD: [employer] Past Medical History Reviewed: Historical Data, Nursing Documentation, Vital Signs Vital Signs: Last Vital Signs Temp 98.9 F 10/13/18 19:24 Pulse 95 H 10/13/18 19:24 Resp 16 10/13/18 19:24 BP 108/50 L 10/13/18 19:24 Pulse Ox 95 10/13/18 19:24 - Medical History PMH: Anxiety, Asthma, Diabetes, HTN, Hyperlipidemia Denies: CHF, Hepatitis, HIV, Chronic Kidney Disease, Seizures, Sexually Transmitted Disease - Surgical History Surgical History: Appendectomy - Family History Family History: States: Unknown Family Hx - Immunization History Hx Tetanus Toxoid Vaccination: Yes Hx Influenza Vaccination: Yes Hx Pneumococcal Vaccination: Yes - Home Medications Home Medications: Ambulatory Orders Medication Instructions Recorded Levothyroxine [Synthroid] 75 mcg PO DAILY 10/29/15 Aspirin [Ecotrin] 81 mg PO DAILY 03/31/17 Atorvastatin Calcium 40 mg PO HS 03/31/17 Carvedilol [Coreg] 25 mg PO Q12 03/31/17 Lisinopril/Hydrochlorothiazide 1 tab PO DAILY 03/31/17 [Lisinopril-Hctz 20-25 mg Tab] Pioglitazone [Actos] 30 mg PO DAILY 03/31/17 Albuterol HFA [Ventolin HFA 90 2 puff IH Q6 PRN 09/24/18 mcg/actuation (8 g)] Cholecalciferol [Vitamin D 1000 IU] 1 tab PO Q48H 09/24/18 Insulin Glargine,Hum.rec.anlog 30 unit SC HS 09/24/18 [Basaglar Kwikpen U-100] Meloxicam [Mobic] 7.5 mg PO DAILY 09/24/18 [place]-3 Fatty Acids [[place]-3] 1 cap PO DAILY 09/24/18 Furosemide [Lasix] 40 mg PO DAILY #30 tab 09/28/18 Potassium Chloride 10 meq PO DAILY #30 tab.er.prt 09/28/18 - Allergies Allergies/Adverse Reactions: Allergies Allergy/AdvReac Type Severity Reaction Status Date / Time No Known Allergies Allergy Verified 10/13/18 19:24 Review of Systems ROS Statement: Except As Marked, All Systems Reviewed And Found Negative Psych: Negative for: Suicidal ideation (Homicidal ideation) Physical Exam - Reviewed Nursing Documentation Reviewed: Yes Vital Signs Reviewed: Yes - Physical Exam Appears: Positive for: Non-toxic, No Acute Distress Head Exam: Positive for: ATRAUMATIC, NORMOCEPHALIC Skin: Positive for: Normal Color, Warm, Dry Eye Exam: Positive for: Normal appearance, EOMI, PERRL ENT: Positive for: Normal ENT Inspection Neck: Positive for: Normal, Painless ROM, Supple Cardiovascular/Chest: Positive for: Regular Rate, Rhythm. Negative for: Murmur Respiratory: Positive for: Normal Breath Sounds. Negative for: Respiratory Distress Gastrointestinal/Abdominal: Positive for: Normal Exam, Soft. Negative for: Tenderness Back: Positive for: Normal Inspection. Negative for: L CVA Tenderness, R CVA Tenderness, Vertebral Tenderness Extremity: Positive for: Normal ROM. Negative for: Pedal Edema, Deformity Neurologic/Psych: Positive for: Alert, Oriented (x3). Negative for: Motor/Sensory Deficits - Laboratory Results Result Diagrams: 10/13/18 20:05 10/13/18 20:05 - ECG O2 Sat by Pulse Oximetry: 95 (RA) Pulse Ox Interpretation: Normal Medical Decision Making Medical Decision Making: Time: 1949 A/P: 73 year old female presenting with para suicidal thoughts, likely adjustment disorder. Will have crisis evaluate her for need for admission. --Crisis evaluation --BMP --CBC with differential 700 Patient is cleared by Dr. Mix with diagnosis of Adjustment Disorder Scribe Attestation: Documented by Vicente Dickinson, acting as a scribe for Refugio Kerr MD. Provider Scribe Attestation: All medical record entries made by the Scribe were at my direction and personally dictated by me. I have reviewed the chart and agree that the record accurately reflects my personal performance of the history, physical exam, medical decision making, and the department course for this patient. I have also personally directed, reviewed, and agree with the discharge instructions and disposition. Disposition - Clinical Impression Clinical Impression: Adjustment disorder - Patient ED Disposition Is Patient to be Admitted: No - Disposition Referrals: Freddy Green MD [Medical Doctor] - Disposition: Routine/Home Disposition Time: 07:00 Condition: IMPROVED Instructions: Adjustment Disorder Forms: [facility] (Moroccan)
[2018-10-13 20:29] LABS: BLOOD UREA NITROGEN 26 mg/dl (7-17); CALCIUM 9.5 mg/dL (8.4-10.2); GFR NON-AFRICAN AMERICAN 55
[2018-10-14 00:41] LABS: ACETAMINOPHEN < 10.0 ug/ml (10.0-30.0); SALICYLATE < 1.0 mg/dl
[2018-10-14 02:50] LABS: SQUAMOUS EPITHIAL 13 /hpf (0-5); URINE BACTERIA RARE (<OCC); URINE BILIRUBIN NEGATIVE (NEGATIVE); URINE BLOOD NEGATIVE (NEGATIVE); URINE CLARITY CLOUDY (Clear); URINE COLOR AMBER (YELLOW); URINE GLUCOSE (UA) NEG (NEGATIVE); URINE LEUKOCYTE ESTERASE NEG Leu/uL (Negative); URINE PROTEIN 30 mg/dL (NEGATIVE); URINE UROBILINOGEN 0.2-1.0 mg/dL (0.2-1.0)
[2018-10-14 03:05] LABS: BARBITURATES, UR NEGATIVE (NEGATIVE); BENZODIAZEPINES, UR NEGATIVE (NEGATIVE); OPIATES, UR NEGATIVE (NEGATIVE); PHENCYCLIDINE, UR NEGATIVE (NEGATIVE)
[2018-10-14 07:21] VITALS: BP 144/70; PULSE 87; RESP 17; TEMP 98.2; O2SAT 96
--- NOTE | 2018-10-14 08:21 | RAD ---
Date of service: 10/13/2018 HISTORY: psych eval COMPARISON: 09/24/2018 FINDINGS: LUNGS: There is interval less prominence of the prior perihilar increased bronchovascular markings interval decreased peribronchiolar thickening. No interval consolidation noted. PLEURA: No significant pleural effusion identified, no pneumothorax apparent. CARDIOVASCULAR: No aortic atherosclerotic calcification present. Heart size appears less pronounced. No significant appearing pulmonary venous congestion. OSSEOUS STRUCTURES: No significant abnormalities. VISUALIZED UPPER ABDOMEN: Possible hiatal hernia- OTHER FINDINGS: None. IMPRESSION: No interval acute cardiopulmonary pathology noted. Interval resolution are prior perihilar prominent bronchovascular markings and peribronchial thickening.
--- NOTE | 2018-10-14 11:09 | CARD ---
APPROVED REPORT Date of service: 10/13/2018 EKG Measurement Heart [id number] <Conclusion> Normal sinus rhythm Normal ECG
== END 2018-10-14 07:20 | disposition home or self-care (01) ==
LOC: H.ER 19:20
DX: F43.20 Adjustment disorder, unspecified (principal)
CPT/HCPCS: 71045; 80048; 81003; 82948; 85025; 93005; 99284; G0480